=== PATIENT | male | born 1990 | race Caucasian/White ===

== ENCOUNTER 2017-03-12 15:56 | Inpatient (IN) | payer OTHER ==
[~2017-03-12] VITALS: Ht 185.4 cm; Wt 79.4 kg
[2017-03-12 20:55] LABS: *AMPHETAMINE, URINE NEGATIVE (NEGATIVE); *BARBITURATE, URINE NEGATIVE (NEGATIVE); *CANNABINOID, URINE POSITIVE (NEGATIVE); *COCCAINE, URINE NEGATIVE (NEGATIVE); *OPIATE, URINE NEGATIVE (NEGATIVE); *PHENCYCLIDINE SCREEN,URINE NEGATIVE (NEGATIVE)
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
[2017-03-12] MEDS ORDERED: ONDANSETRON ODT 4 MG TAB.RAPDIS SL PRN (21:15)
[2017-03-12] MEDS ORDERED: LORAZEPAM 1 MG TABLET PO PRN ×2 (21:15)
[2017-03-12] MEDS ORDERED: LOPERAMIDE HCL 2 MG CAPSULE PO PRN ×2 (21:15)
[2017-03-12] MEDS ORDERED: HYDROXYZINE PAMOATE 25 MG CAPSULE PO PRN (21:15)
[2017-03-12] MEDS ORDERED: MAG HYDROX/AL HYDROX/SIMETH 30 ML LIQUID UDC PO PRN (21:15)
[2017-03-12] MEDS ORDERED: DICYCLOMINE HCL 20 MG TABLET PO PRN (21:15)
[2017-03-12] MEDS ORDERED: ONDANSETRON 4 MG/2 ML VIAL IM PRN (21:15)
[2017-03-12] MEDS ORDERED: CLONIDINE HCL 0.1 MG TABLET PO PRN (21:15)
[2017-03-12] MEDS ORDERED: THIAMINE HCL 200 MG/2 ML VIAL IM ONE (21:15)
[2017-03-12] MEDS ORDERED: LORAZEPAM 2 MG/1 ML VIAL IM PRN (21:15)
[2017-03-12] MEDS ORDERED: MAGNESIUM HYDROXIDE 30 ML LIQUID UDC PO PRN (21:15)
[2017-03-12] MEDS ORDERED: MIRALAX 17 GM POWD.PACK PO PRN (21:15)
[2017-03-12] MEDS ORDERED: diphenhydrAMINE 50 MG CAPSULE PO PRN (21:15)
[2017-03-12] MEDS ORDERED: ACETAMINOPHEN 325 MG TABLET PO PRN (21:15)
[2017-03-12] MEDS ORDERED: IBUPROFEN 400 MG TABLET PO PRN (21:15)
[2017-03-12] MEDS ORDERED: QUET100T PO (21:38)
[2017-03-12] MEDS ORDERED: FLUO-120 PO (21:38)
[2017-03-12] MEDS ORDERED: GABA600T2 PO (21:38)
[2017-03-12] MEDS ORDERED: HALO2TAB PO (21:38)
[2017-03-12] MEDS ORDERED: HYDR50CA5 PO (21:38)
[2017-03-12 21:48] LABS: BASOPHILS # (AUTO) 0.2 K/uL (0.0-8.0); BASOPHILS % (AUTO) 2.1 % (0.0-2.0); EOSINOPHILS # (AUTO) 0.3 K/uL (0.0-0.7); EOSINOPHILS % (AUTO) 2.9 % (0.0-7.0); HEMATOCRIT 46.5 % (36.7-47.1); HEMOGLOBIN 16.1 g/dL (12.5-16.3); LYMPHOCYTES # (AUTO) 3.6 K/uL (20.0-40.0); LYMPHOCYTES % (AUTO) 34.5 % (20.5-51.5); MEAN CORPUSCULAR HEMOGLOBIN 31.6 uug (23.8-33.4); MEAN CORPUSCULAR HGB CONC 35 g/dL (32.5-36.3); MEAN CORPUSCULAR VOLUME 91.4 fL (73.0-96.2); MONOCYTES # (AUTO) 0.5 K/uL (2.0-10.0); MONOCYTES % (AUTO) 4.7 % (0.0-11.0); NEUTROPHILS # (AUTO) 5.9 K/uL (1.8-8.9); NEUTROPHILS % (AUTO) 55.8 % (38.5-71.5); PLATELET COUNT (AUTO) 409 K/uL (152-348); RED BLOOD CELL COUNT(AUTO) 5.09 MIL/uL (4.06-5.63); RED CELL DISTRIBUTION WIDTH 12.1 % (12.1-16.2); WHITE BLOOD COUNT (AUTO) 10.5 K/uL (3.6-10.2)
[2017-03-12 22:14] LABS: ALBUMIN 4.2 g/dL (3.4-5.0); BILIRUBIN,TOTAL 0.3 mg/dL (0.2-1.0); CALCIUM 8.7 mg/dL (8.5-10.1); MAGNESIUM 2.2 mg/dL (1.8-2.4); POTASSIUM 3.7 mmol/L (3.5-5.1); TOTAL PROTEIN, SERUM 7.5 g/dL (6.4-8.2)
[2017-03-12 22:29] LABS: HIV-1/2 ANTIBODY NON REACTIVE (NONREACTIVE)
[2017-03-12 22:30] LABS: HIV-1 p24 ANTIGEN NON REACTIVE (NONREACTIVE)
[2017-03-12 22:35] LABS: THYROID STIMULATING HORMONE 1.51 mIU/mL (0.358-3.740)
--- NOTE | 2017-03-12 22:52 | NUR ---
PRN ATIVAN Pt reports anxiety/agitation and restlessness. Pt is observed with fine tremors. CIWA:6. PRN Ativan 1 mg administered as ordered. Breathing even and unlabored, safety measures in place. Will monitor effectiveness.
[2017-03-12] MEDS ORDERED: LORAZEPAM 1 MG TABLET ONE (22:58)
--- NOTE | 2017-03-12 23:52 | NUR ---
PRN ATIVAN REASSESSMENT PRN Ativan effective. Pt reports feeling less anxious and restless. Pt noted to be lying in bed calmly. CIWA:3. Breathing even and unlabored, safety measures in place. Will continue to monitor.
[2017-03-13] VITALS: BP 119/50
[2017-03-13] MEDS ORDERED: diphenhydrAMINE 50 MG CAPSULE ONE (00:57)
--- NOTE | 2017-03-13 00:57 | NUR ---
PRN BENADRYL Pt complains of inability to sleep. PRN Benadryl administered as ordered. Breathing is even and unlabored, respirations 16, safety measures in place. Will continue to monitor effectiveness.
--- NOTE | 2017-03-13 01:57 | NUR ---
PRN BENADRYL REASSESSMENT PRN Benadryl effective. Pt lying in bed with eyes closed noted to be asleep. No facial grimacing. Respirations 16, breathing is even and unlabored, safety measures in place. Will continue to monitor.
[2017-03-13 04:00] VITALS: BP 95/45
--- NOTE | 2017-03-13 04:00 | NUR ---
CIWA DEFERRED CIWA deferred d/t order is Q4H while awake. Pt lying in bed with eyes closed noted to be asleep. Respirations 16, breathing is even and unlabored. Pt safe with bed locked in lowest position, side rails up x2 and call light within reach. Will continue to monitor.
--- NOTE | 2017-03-13 07:16 | NUR ---
END OF SHIFT Pt is a 26 year old male patient admitted on 03/12/17 for ETOH dependency. Pt is full code with NKA. He reports a PMHx of anxiety, depression, Bipolar and ADHD. At 2252 he received PRN Ativan for CIWA: 6. PRN Ativan was effective as evidenced by decrease in CIWA to 3. At 0057 pt received PRN Benadryl d/t inability to fall asleep. PRN medication was effective. He slept a total of 5 hrs, Intake: 1252 mL, Void: x1, BM: 0. CIWA:3. Pt is alert and oriented x4, breathing is even and unlabored. Pt safe with bed locked in lowest position, side rails up x2 and call light within reach. Endorsed to oncoming nurse.
--- NOTE | 2017-03-13 07:19 | NUR ---
Start OF Shift Report received from night auditor nurse. Pt is a 26 year old male patient admitted on 03/12/17 for ETOH dependency. Pt is full code regular diet on fall and seizure precautions, with no food or drug allergies. Pt placed on a 5 day Ativan taper to begin today. Pt reports PMHx of anxiety, depression, Bipolar and ADHD. Pt received PRN Ativan , Benadryl d/t inability to fall asleep. PRN medication was effective. Pts last CIWA:3 taken at 0100. Pt is alert and oriented x4, breathing is even and unlabored. He slept a total of 5 hrs last night, Pt safe with bed locked in lowest position, side rails up x2 and call light within reach, all safety measures in place will continue to monitor and provide support.
[2017-03-13 08:00] VITALS: BP 119/67
[2017-03-13] MEDS ORDERED: TUBERCULIN,PURIF.PROT.DERIV. 5 TU/0.1 ML TEST ID ONE (09:00)
[2017-03-13] MEDS: LORAZEPAM 1 MG TABLET PO SCH ×4 (09:05→20:14)
[2017-03-13] MEDS: FOLIC ACID 1 MG TABLET PO SCH (09:05)
[2017-03-13] MEDS: THIAMINE HCL 100 MG TABLET PO SCH (09:05)
[2017-03-13] MEDS: MULTIVITAMINS,THERAPEUTIC TABLET PO SCH (09:05)
[2017-03-13] MEDS: GABAPENTIN 300 MG CAPSULE PO SCH ×2 (09:05→20:14)
[2017-03-13 12:00] VITALS: BP 121/71
[2017-03-13] MEDS: FLUOXETINE HCL 20 MG CAPSULE PO SCH (12:27)
[2017-03-13 16:00] VITALS: BP 117/73
--- NOTE | 2017-03-13 19:13 | NUR ---
End Of Shift Report given to shift supervisor rn nurse. Pt is a 26 year old male patient admitted on 03/12/17 for ETOH dependency. Pt is full code regular diet on fall and seizure precautions, with no food or drug allergies. Pt continues his 5 day Ativan taper tolerating well. PMHx of anxiety, depression, Bipolar and ADHD. Pt did not receive any PRN medications, Pt presented with sweats, agitation, chills, and tremors, his scheduled medications have been given. Pts last CIWA: 4 taken at 1600. Pt is alert and oriented x4, breathing is even and unlabored. Pt slept most of the day and attended some activities, he reported that the medication is working well at controlling his withdrawal symptoms. He had a total fluid intake of 4482ml with 2 voids and 1 bowel movement. Pt safe with bed locked in lowest position, side rails up x2 and call light within reach, all safety measures in place will continue to monitor and provide support.
[2017-03-13 20:00] VITALS: BP 126/71
--- NOTE | 2017-03-13 20:00 | NUR ---
Start of Shift Pt is a 26-year old, male, patient admitted for ETOH dependency. Pt is Full Code, on Regular Diet and on fall and seizure precautions. Pt reports no food or drug allergies. Pt placed on a 5-day Ativan taper, started 03/13/2017. Pt reports PMHx of anxiety, depression, Bipolar and ADHD. Pt is AAOx4, with mild anxiety noted. With flushed skin observed. Pt is ambulatory with steady gait, with no open skin noted. No SOB noted, not in respi distress. Fall, universal, seizure and safety prec in place. Call light within reach. Kept pt warm, dry and comfortable. All needs met. Last CIWA=5. Will continue to monitor pt.
[2017-03-13] MEDS: QUETIAPINE FUMARATE 100 MG TABLET PO SCH (20:14)
--- NOTE | 2017-03-13 20:18 | NUR ---
RN note PRN Clonidine Pt c/o increasing withdrawal symptoms, with tremors noted. Pulse=92. Administered Clonidine 0.1 mg PO. No SOB noted. Will monitor and reassess.
--- NOTE | 2017-03-13 21:20 | NUR ---
RN note reassess Pt on bed, watching TV, no SOB nor facial grimacing noted. Per pt, anxiety level decreased and "feels better". No gross tremors observed. Pulse=82. Clonidine noted effective.
[2017-03-14] VITALS: BP 120/72
[2017-03-14 04:00] VITALS: BP 114/70
--- NOTE | 2017-03-14 07:13 | NUR ---
End of Shift Pt is a 26-year old, male, patient admitted for ETOH dependency. Pt is Full Code, on Regular Diet and on fall and seizure precautions. Pt reports no food or drug allergies. Pt placed on a 5-day Ativan taper, started 03/13/2017. Pt reports PMHx of anxiety, depression, Bipolar and ADHD. Pt is AAOx4, with mild anxiety noted. With flushed skin observed. Pt is ambulatory with steady gait, with no open skin noted. No SOB noted, not in respi distress. Fall, universal, seizure and safety prec in place. Call light within reach. Kept pt warm, dry and comfortable. All needs met. Latest CIWA=3, slept for 5 hours. Endorsed to AM shift nurse for continuity of care.
--- NOTE | 2017-03-14 07:27 | NUR ---
Start Of Shift Report received from shift commander nurse. Pt is a 26 year old male patient admitted on 03/12/17 for ETOH dependency. Pt is full code regular diet on fall and seizure precautions, with no food or drug allergies. Pt placed on a 5 day Ativan taper tolerating well. Pt reports PMHx of anxiety, depression, Bipolar and ADHD. Pt received PRN Clonidine 0.1mg. PRN medication was effective per shift commander nurse. Pt's last CIWA: 3 taken at 0400. Pt is alert and oriented x4, breathing is even and unlabored. He slept a total of 5 hrs last night, Pt safe with bed locked in lowest position, side rails up x2 and call light within reach, all safety measures in place will continue to monitor and provide support.
[2017-03-14 08:00] VITALS: BP 119/82
[2017-03-14] MEDS: LORAZEPAM 1 MG TABLET PO SCH ×3 (08:26→20:48)
[2017-03-14] MEDS: FOLIC ACID 1 MG TABLET PO SCH (08:26)
[2017-03-14] MEDS: GABAPENTIN 300 MG CAPSULE PO SCH ×3 (08:26→20:49)
[2017-03-14] MEDS: THIAMINE HCL 100 MG TABLET PO SCH (08:26)
[2017-03-14] MEDS: MULTIVITAMINS,THERAPEUTIC TABLET PO SCH (08:26)
[2017-03-14] MEDS: FLUOXETINE HCL 20 MG CAPSULE PO SCH (08:27)
[2017-03-14 08:59] LABS: BASOPHILS # (AUTO) 0.1 K/uL (0.0-8.0); BASOPHILS % (AUTO) 0.7 % (0.0-2.0); EOSINOPHILS # (AUTO) 0.3 K/uL (0.0-0.7); EOSINOPHILS % (AUTO) 3.9 % (0.0-7.0); HEMATOCRIT 42.5 % (36.7-47.1); HEMOGLOBIN 14.8 g/dL (12.5-16.3); LYMPHOCYTES # (AUTO) 3.1 K/uL (20.0-40.0); LYMPHOCYTES % (AUTO) 37.6 % (20.5-51.5); MEAN CORPUSCULAR HEMOGLOBIN 31.9 uug (23.8-33.4); MEAN CORPUSCULAR HGB CONC 35 g/dL (32.5-36.3); MEAN CORPUSCULAR VOLUME 91.7 fL (73.0-96.2); MONOCYTES # (AUTO) 0.7 K/uL (2.0-10.0); NEUTROPHILS % (AUTO) 48.8 % (38.5-71.5); PLATELET COUNT (AUTO) 364 K/uL (152-348); RED BLOOD CELL COUNT(AUTO) 4.64 MIL/uL (4.06-5.63); RED CELL DISTRIBUTION WIDTH 11.6 % (12.1-16.2); WHITE BLOOD COUNT (AUTO) 8.2 K/uL (3.6-10.2)
[2017-03-14 09:07] LABS: HCV AB <0.1 s/co ratio (0.0-0.9); HEPATITIS B CORE AB, IgM Negative (Negative); HEPATITIS B SURFACE AG Negative (Negative)
[2017-03-14 09:39] LABS: FOLIC ACID 7.1 NG/ML (8.6-58.9)
[2017-03-14 09:41] LABS: ALBUMIN 3.5 g/dL (3.4-5.0); BILIRUBIN,DIRECT 0.1 mg/dL (0.0-0.2); BILIRUBIN,TOTAL 0.2 mg/dL (0.2-1.0); CALCIUM 8.8 mg/dL (8.5-10.1); CREATININE 1.1 mg/dL (0.6-1.3); POTASSIUM 4.5 mmol/L (3.5-5.1); TOTAL PROTEIN, SERUM 6.7 g/dL (6.4-8.2)
[2017-03-14 12:00] VITALS: BP 124/88
[2017-03-14] MEDS ORDERED: LORAZEPAM 1 MG TABLET PO ONE (13:00)
[2017-03-14] MEDS: CLONIDINE HCL 0.1 MG TABLET PO SCH ×2 (14:24→20:49)
[2017-03-14 16:00] VITALS: BP 118/68
--- NOTE | 2017-03-14 19:09 | NUR ---
End of Shift Report given to shift supervisor melting. Pt is a 26 year old male patient admitted on 03/12/17 for ETOH dependency. Pt is full code regular diet on fall and seizure precautions, with no food or drug allergies. Pt placed on a 5 day Ativan taper tolerating well. Pt reports PMHx of anxiety, depression, Bipolar and ADHD. Pt did not receive any PRN medications during the day. Pt's last CIWA: 5 taken at 1600. Pt participated in some activities and groups. Pt stated that the medications are working well at controlling the withdrawal symptoms, evidenced by low assessment scores during the day ranging from 7-5. Pt ate all of his meals. Pt remains compliant with the treatment plan. Pts vital signs within normal limits, A/Ox4, denies chest pain. Respirations even unlabored, lungs clear upon auscultation abdomen soft and non- distended. Pt denies nausea, vomiting and diarrhea. Pt total fluid intake was 4105ml with 3 voids and no stool. Safety measures in place, call light within reach. All pertinent information discussed with shift supervisor melting, endorsement given to shift supervisor melting nurse.
[2017-03-14 20:00] VITALS: BP 123/71
--- NOTE | 2017-03-14 20:00 | NUR ---
1999 Patient received awake, alert and just returning to his room # 302[facility]. Gait is steady. Patient responds to nurse's greeting and introduction with direct eye contact and, " Hi, you're my nurse tonight?" Patient is oriented to person, place, day, date, time and his personal situation. Patient's color is pink and his skin is clean, warm, dry and intact. Lung sounds are clear bilaterally and active bowel sounds are noted X 4 abdominal Quads, per auscultation. Patient states that he is doing 'okay' generally, though he states that he got emotional and had a cry briefly after group today. Patient states further that he did receive support from staff and other patients when his crying episode occurred. Vital signs are : 98.4-85-18 123/71, O2 Sat 98%, CIWA 4. Patient states that he has been eating and taking fluids ad bert with no real gastric issues so far. Patient was admitted on 03/12/17 for Alcohol withdrawal and he is currently on a 5-Day Ativan medication taper, which he has been apparently tolerating well. Patient denies any pain or other discomforts and he offers no requests at this time. Patient is friendly, cooperative and verbally appropriate at this time. Bed is locked and in lowest position, bed rails are up X 2 and call light within patient's easy reach.
[2017-03-14] MEDS: QUETIAPINE FUMARATE 100 MG TABLET PO SCH (20:49)
[2017-03-15] VITALS: BP 118/67
--- NOTE | 2017-03-15 04:00 | NUR ---
Patient refused V/S to be done at this time, as patient wants to continue to sleep.
--- NOTE | 2017-03-15 06:00 | NUR ---
0600 Patient had an uneventful night, sleeping a total of 6 hours. Total intake was 1,500 ml p.o. and he was up to the bathroom for 2 voids and 1 stools. No Prn medications given this shift. V/SS afebrile, CIWA 4. Patient is presently sleeping soundly with eyes closed and respirations even, unlabored at 12. Patient is in stable condition at this time.
--- NOTE | 2017-03-15 07:35 | NUR ---
START OF SHIFT Received patient from spray ii painter nurse. 26 year old male, admitted on 03/12/17 for ETOH Dependence. Pt is full code regular diet on fall and seizure precautions. NKDA/NKFA. Patient is currently on a 5 day Ativan taper tolerating well. Reports medical hx of Depression, Anxiety, Bipolar, and ADHD. Pt remains compliant and cooperative with ordered treatment plan and s/s of withdrawal are being well managed with ordered medications. Most recent CIWA at 0400 is 4. Pt slept for 6 hours. No PRN medications needed or administered throughout night. V/S remain WNL. Skin is intact. Pt reports having 1x BM. Pt is currently sleeping in bed. All safety measures in place per hospital policy. Bed in lowest position, side rails up x2, call-light within reach. Will continue to monitor.
[2017-03-15 08:10] VITALS: BP 116/60
[2017-03-15] MEDS: FLUOXETINE HCL 20 MG CAPSULE PO SCH (08:20)
[2017-03-15] MEDS: GABAPENTIN 300 MG CAPSULE PO SCH ×2 (08:20→15:12)
[2017-03-15] MEDS: FOLIC ACID 1 MG TABLET PO SCH (08:20)
[2017-03-15] MEDS: MULTIVITAMINS,THERAPEUTIC TABLET PO SCH (08:20)
[2017-03-15] MEDS: LORAZEPAM 1 MG TABLET PO SCH ×4 (08:20→20:47)
[2017-03-15] MEDS: CLONIDINE HCL 0.1 MG TABLET PO SCH ×3 (08:20→20:48)
[2017-03-15] MEDS: THIAMINE HCL 100 MG TABLET PO SCH (08:20)
[2017-03-15 13:01] VITALS: BP 120/69
--- NOTE | 2017-03-15 13:09 | NUR ---
MEDICATION ADMINISTRATION Upon receiving ordered scheduled dose of Ativan 1 mg mouth check done per protocol, pt lifted tongue to show medication was swallowed. Pt was noted to have medication between bottom lip and teeth, pt was instructed to take the medication as ordered, another mouth check was done and clear. MD notified and is aware. Will continue to closely monitor.
[2017-03-15 17:17] VITALS: BP 124/69
--- NOTE | 2017-03-15 18:46 | NUR ---
END OF SHIFT 26 year old male patient admitted on 03/12/17 for ETOH Dependence. Pt is full code regular diet on fall and seizure precautions. Patient is currently on a 5 day Ativan taper tolerating well. Reports medical hx of Depression, Anxiety, Bipolar, and ADHD. Pt remains compliant and cooperative with ordered treatment plan and s/s of withdrawal are being well managed with ordered medications. Most recent CIWA is 4 at 1700. Pt monitored carefully during med pass to assure medication is being taken approptiately per hospital policy. No PRN medications needed or administered throughout day. V/S remain WNL. Pt socializes with peers, adequate caloric intake. Pt reports having 1x BM. All safety measures in place per hospital policy. Bed in lowest position, side rails up x2, call-light within reach. maintenance supervisor 2nd shift to continue to monitor.
[2017-03-15 20:00] VITALS: BP 129/66
--- NOTE | 2017-03-15 20:00 | NUR ---
1999 Patient received awake, alert and sitting up on his bed braiding a bracelet. Upon seeing nurse, patient states, " Look at this bracelet! isn't it nice?! Patient's color is pink and his skin is warm, dry and intact. Patient is oriented to person, place, day, date, time and his personal situation. Patient states that he he is presently feeling okay and he offers no requests or c/o any thing at this time. Patient states further that he has been eating, taking fluids ad bert and attending [facility] groups consistently. Vital signs are: 98.6-86-20 129/66 O2 sat 98%, CIWA 4. Patient denies any pain presently. Patient was admitted on 03/12/17 for Alcohol withdrawal and he is currently on a 5-Day Ativan medication taper, which he has apparently been tolerating well so far. Patient is cooperative and verbally appropriate in interactions with nurse, however his affect is a noticeably flat and his eye contact is poor. Bed is locked and in lowest position, bed rails are up X 2 and call light within patient's easy reach.
[2017-03-15] MEDS: QUETIAPINE FUMARATE 100 MG TABLET PO SCH (20:48)
[2017-03-15] MEDS ORDERED: GABAPENTIN 400 MG CAPSULE ONE (20:49)
[2017-03-15] MEDS ORDERED: GABAPENTIN 400 MG CAPSULE PO SCH (21:00)
[2017-03-16] VITALS: BP 121/61
--- NOTE | 2017-03-16 04:00 | NUR ---
Patient refuses to be awakened for V/S to be done at this time>
--- NOTE | 2017-03-16 06:00 | NUR ---
0600 Patient slept a total of 5.5 hours and he was up to the bathroom for 1 void and 1 stool. Total intake was 875 ml p.o. No Prn medications were given this shift. V/SS afebrile, CIWA 4. Patient is presently sleeping soundly in stable condition. Eyes closed and respirations even, unlabored at 12.
--- NOTE | 2017-03-16 07:05 | NUR ---
Start of Shift Endorsement received from nightshift nurse. Pt is a 26 y/o male admitted for alcohol dependence. Pt has been placed on a 5 day Ativan taper. Pt is tolerating the taper well, mildly withdrawing at this time AEB CIWA 4. Pt did not receive any PRN medications. Pt slept 5.5 hours, reports feeling tired. VS WNL, Full Code. PT is alert and oriented x4. Pt is in STABLE condition at this time. Remains compliant with medication and diet regimen. All needs have been met, All safety measures in place per hospital policy. Bed in lowest position, side rails up x2, call-light within reach. Will continue to monitor
[2017-03-16 07:47] LABS: CALCIUM 8.6 mg/dL (8.5-10.1); CREATININE 0.9 mg/dL (0.6-1.3); PHOSPHOROUS 4.9 mg/dL (2.5-4.9); POTASSIUM 3.9 mmol/L (3.5-5.1)
[2017-03-16 08:03] VITALS: BP 125/59
[2017-03-16 08:11] LABS: BASOPHILS # (AUTO) 0.1 K/uL (0.0-8.0); BASOPHILS % (AUTO) 0.7 % (0.0-2.0); EOSINOPHILS # (AUTO) 0.4 K/uL (0.0-0.7); EOSINOPHILS % (AUTO) 3.9 % (0.0-7.0); HEMATOCRIT 40.8 % (36.7-47.1); HEMOGLOBIN 14.2 g/dL (12.5-16.3); LYMPHOCYTES # (AUTO) 3.8 K/uL (20.0-40.0); LYMPHOCYTES % (AUTO) 36.2 % (20.5-51.5); MEAN CORPUSCULAR HGB CONC 35 g/dL (32.5-36.3); MEAN CORPUSCULAR VOLUME 92.1 fL (73.0-96.2); MONOCYTES % (AUTO) 9.2 % (0.0-11.0); NEUTROPHILS # (AUTO) 5.2 K/uL (1.8-8.9); PLATELET COUNT (AUTO) 348 K/uL (152-348); RED BLOOD CELL COUNT(AUTO) 4.43 MIL/uL (4.06-5.63); RED CELL DISTRIBUTION WIDTH 12.1 % (12.1-16.2)
[2017-03-16 08:22] LABS: WHITE BLOOD COUNT (AUTO) 10.5 K/uL (3.6-10.2)
[2017-03-16] MEDS: FLUOXETINE HCL 20 MG CAPSULE PO SCH (08:35)
[2017-03-16] MEDS: LORAZEPAM 1 MG TABLET PO SCH ×3 (08:36→21:16)
[2017-03-16] MEDS: THIAMINE HCL 100 MG TABLET PO SCH (08:36)
[2017-03-16] MEDS: FOLIC ACID 1 MG TABLET PO SCH (08:36)
[2017-03-16] MEDS: CLONIDINE HCL 0.1 MG TABLET PO SCH ×3 (08:36→21:16)
[2017-03-16] MEDS: MULTIVITAMINS,THERAPEUTIC TABLET PO SCH (08:36)
[2017-03-16] MEDS ORDERED: GABAPENTIN 300 MG CAPSULE PO SCH (09:00)
[2017-03-16 12:00] VITALS: BP 124/61
[2017-03-16] MEDS ORDERED: CALCIUM CARBONATE 500 MG TAB.CHEW PO PRN (13:30)
[2017-03-16] MEDS ORDERED: BACLOFEN 20 MG TABLET PO SCH (13:30)
[2017-03-16] MEDS: GABAPENTIN 400 MG CAPSULE PO SCH ×2 (15:31→21:15)
[2017-03-16] MEDS: DICYCLOMINE HCL 20 MG TABLET PO SCH ×2 (15:32→21:16)
[2017-03-16 16:00] VITALS: BP 125/68
--- NOTE | 2017-03-16 18:54 | NUR ---
End of Shift Endorsement given to nightshift nurse. Pt is a 26 y/o male admitted for alcohol dependence. Pt has been placed on a 5 day Ativan taper. Pt is tolerating the taper well, mildly withdrawing at this time AEB CIWA 2 at 1600. Pt did not receive any PRN medications. Pt participated in groups and activities. PT reported feeling anger, after farther evaluation by Dr. Knott, the pt has been prescribed PRN Seroquel 25mg. Educated pt on deep breathing and guided imagery to help relieve minor to moderate anxiety. Intake: 2910ml, Void x3, BM x1. VS WNL, Full Code. PT is alert and oriented x4. Pt is in STABLE condition at this time. Remains compliant with medication and diet regimen. All needs have been met, All safety measures in place per hospital policy. Bed in lowest position, side rails up x2, call-light within reach. Will continue to monitor
[2017-03-16 20:00] VITALS: BP 131/72
--- NOTE | 2017-03-16 20:00 | NUR ---
Start of Shift Pt is a 26 year old male admitted for ETOH dependence, placed on 5 day Ativan taper. PMH: anxiety, depression bipolar, ADHD. NKA, regular diet, fall/seizure precautions - no history of seizures and full code. Upon assessment, pt presents with anxiety, reports mild aches throughout body, respirations even and unlabored, denies SOB/chest pain, skin flushed, intact, bowel sounds active x4, abdomen soft. Safety measures in place, call light within reach, side rails up x2, bed locked and in low position. Will continue to monitor.
[2017-03-16] MEDS: QUETIAPINE FUMARATE 100 MG TABLET PO SCH (21:16)
[2017-03-17] VITALS: BP 117/62
--- NOTE | 2017-03-17 | NUR ---
Vital Signs BP 117/62, pulse 80, respirations 16, SpO2 98%, temp 98.6, no reports of pain 0/10 CIWA deferred d/t pt sleeping - to assess while pt is awake as ordered. Safety measures in place. Will continue to monitor.
[2017-03-17 04:00] VITALS: BP 99/68
--- NOTE | 2017-03-17 04:00 | NUR ---
Vital Signs BP 99/68, pulse 67, respirations 14, SpO2 98%, temp 98.1, no reports of pain 0/10 CIWA deferred d/t pt sleeping - to assess while pt is awake as ordered. Safety measures in place. Will continue to monitor.
--- NOTE | 2017-03-17 07:00 | NUR ---
End of Shift Pt is a 26 year old male admitted for ETOH dependence, placed on 5 day Ativan taper. PMH: anxiety, depression bipolar, ADHD. NKA, regular diet, fall/seizure precautions - no history of seizures and full code. During shift, pt presented with anxiety and mild body aches - scheduled taper medications administered, effective in management of s/s of withdrawal as reporty by pt, BERRY 2. No PRN medications administered. Pt slept for 5 hours intake of 2535 ml PO and voids x3. Safety measures in place, call light within reach, side rails up x2, bed locked and in low position. Endorsed to day shift nurse.
--- NOTE | 2017-03-17 07:35 | NUR ---
START OF SHIFT Received pt aox3 this am. Pt on 5 day Ativan taper. Patient slept 5 hours last night and reports he slept "off and on" and feels "congested and achey" this morning. No PRNs needed during shift per night nurse. Patient continues on seizure and fall precautions. Denies hx of seizures. Last CIWA 2 per night nurse. Will administer 0900 medications this am. Will provide safe and supportive environment and continue to monitor. Call tavarez within reach. Bed locked and in lowest position.
[2017-03-17 08:00] VITALS: BP 107/61
[2017-03-17] MEDS: GABAPENTIN 400 MG CAPSULE PO SCH ×3 (08:38→20:54)
[2017-03-17] MEDS: DICYCLOMINE HCL 20 MG TABLET PO SCH ×3 (08:39→20:54)
[2017-03-17] MEDS: FOLIC ACID 1 MG TABLET PO SCH (08:39)
[2017-03-17] MEDS: FLUOXETINE HCL 20 MG CAPSULE PO SCH (08:39)
[2017-03-17] MEDS: LORAZEPAM 1 MG TABLET PO SCH ×2 (08:39→20:54)
[2017-03-17] MEDS: FAMOTIDINE 20 MG TABLET PO SCH (08:39)
[2017-03-17] MEDS: MULTIVITAMINS,THERAPEUTIC TABLET PO SCH (08:39)
[2017-03-17] MEDS: CLONIDINE HCL 0.1 MG TABLET PO SCH ×3 (08:39→20:54)
[2017-03-17] MEDS: THIAMINE HCL 100 MG TABLET PO SCH (08:39)
--- NOTE | 2017-03-17 10:38 | NUR ---
MD communication Pt denies having active diarrhea, notified Dr Layne, ordered to cancel stool for c-diff. Orders entered. unable to enter orders.
[2017-03-17] MEDS: QUETIAPINE FUMARATE 25 MG TABLET PO PRN (11:03)
--- NOTE | 2017-03-17 11:06 | NUR ---
PRN MEDS PRN Seroquel given per patient request for agitation and anger. He states he talked to Dr. Wong and he suggested taking his PRN Seroquel. Will reassess.
--- NOTE | 2017-03-17 11:50 | NUR ---
PRN REASSESSMENT Patient currently sleeping in bed. RR even and unlabored. Bed locked and in lowest position. Call tavarez within reach. medication effective. Will continue to monitor
[2017-03-17 12:00] VITALS: BP 108/51
[2017-03-17 16:00] VITALS: BP 108/56
--- NOTE | 2017-03-17 18:41 | NUR ---
END OF SHIFT Pt continues on 5 day Ativan taper and tolerating well. Pt c/o anxiety, agitation, and feeling manic during shift. PRN Seroquel given with effectiveness. Last CIWA 7. Patient attended groups and activities this shift. patient compliant with medications and treatment plan. VSS. Pt on seizure and fall precautions. All needs met. All safety measures in place. Will pass report to oncoming nurse.
[2017-03-17] MEDS ORDERED: BACLOFEN 20 MG TABLET PO PRN ×2 (19:45)
[2017-03-17 20:00] VITALS: BP 114/63
--- NOTE | 2017-03-17 20:00 | NUR ---
Start of Shift Pt is a 26 year old male admitted for ETOH dependence, placed on 5 day Ativan taper. PMH: anxiety, depression bipolar, ADHD. NKA, regular diet, fall/seizure precautions - no history of seizures and full code. Upon assessment, pt reports joint aches in knees, and reports feeling anxious throughout the day, respirations even and unlabored, denies SOB/chest pain, skin flushed, intact, bowel sounds active x4, abdomen soft. Safety measures in place, call light within reach, side rails up x2, bed locked and in low position. Will continue to monitor.
[2017-03-17] MEDS: QUETIAPINE FUMARATE 100 MG TABLET PO SCH (20:53)
[2017-03-18] VITALS: BP 110/59
--- NOTE | 2017-03-18 | NUR ---
Vital Signs BP 110/59, pulse 70, respirations 16, SpO2 96%, temp 98.1, no reports of pain 0/10 CIWA deferred d/t pt sleeping - to assess while pt is awake as ordered. Safety measures in place. Will continue to monitor.
--- NOTE | 2017-03-18 04:00 | NUR ---
Pt refused to be woken up for 0400 Vital Signs Encouraged x3, however pt continued to refuse CIWA deferred d/t pt sleeping - to assess while pt is awake as ordered. Safety measures in place. Will continue to monitor.
--- NOTE | 2017-03-18 07:00 | NUR ---
End of Shift Pt is a 26 year old male admitted for ETOH dependence, placed on 5 day Ativan taper. PMH: anxiety, depression bipolar, ADHD. NKA, regular diet, fall/seizure precautions - no history of seizures and full code. During shift, pt presented with joint aches in knees, reported feeling anxious - scheduled taper medications administered, effective in management of s/s of withdrawal, CIWA 6. No PRN medications administered during shift. Pt slept for 5 hours, intake of 1683ml PO and voids x1. Safety measures in place, call light within reach, side rails up x2, bed locked and in low poisiton. Endorsed to day shift nurse.
[2017-03-18 08:00] VITALS: BP_SYST 111; BP_SYST 116; BP_DIAS 68; BP_DIAS 78
--- NOTE | 2017-03-18 08:00 | NUR ---
START OF SHIFT Pt 26 y/o male admitted for etoh. Pt received in room with eyes closed resting, but easily arousable to name. Pt alert and oriented to name, place, and time. Perrla. Skin warm and slightly moist to touch. Respirations even and unlabored. It was reported that pt slept for 5 hours last night. Bed on lowest position with side rails x2 up for safety. Call light within reach. Call light within reach. No distress noted at this time.
[2017-03-18] MEDS: THIAMINE HCL 100 MG TABLET PO SCH (08:43)
[2017-03-18] MEDS: CLONIDINE HCL 0.1 MG TABLET PO SCH ×2 (08:43→21:15)
[2017-03-18] MEDS: DICYCLOMINE HCL 20 MG TABLET PO SCH ×2 (08:43→15:01)
[2017-03-18] MEDS: FOLIC ACID 1 MG TABLET PO SCH (08:43)
[2017-03-18] MEDS: FAMOTIDINE 20 MG TABLET PO SCH (08:43)
[2017-03-18] MEDS: FLUOXETINE HCL 20 MG CAPSULE PO SCH (08:43)
[2017-03-18] MEDS: MULTIVITAMINS,THERAPEUTIC TABLET PO SCH (08:43)
[2017-03-18] MEDS: GABAPENTIN 400 MG CAPSULE PO SCH ×3 (08:43→21:15)
--- NOTE | 2017-03-18 10:18 | NUR ---
ENDORSE Endorse pt to nurse.
--- NOTE | 2017-03-18 10:18 | NUR ---
RESUMED CARE Will resume care of patient. All pertinent information was endorsed. Pt is stable at this time, will continue to monitor.
[2017-03-18 13:24] VITALS: BP 123/71
[2017-03-18 15:49] LABS: *AMPHETAMINE, URINE NEGATIVE (NEGATIVE); *BARBITURATE, URINE NEGATIVE (NEGATIVE); *CANNABINOID, URINE NEGATIVE (NEGATIVE); *COCCAINE, URINE NEGATIVE (NEGATIVE); *OPIATE, URINE NEGATIVE (NEGATIVE); *PHENCYCLIDINE SCREEN,URINE NEGATIVE (NEGATIVE)
[2017-03-18 17:49] VITALS: BP 127/72
--- NOTE | 2017-03-18 19:05 | NUR ---
END OF SHIFT Endorsed to operation shift supervisor nurse. 26 year old make patient admitted on 03/12/17 for ETOH dependence. Pt has completed 5 day Ativan taper and is medically cleared for discharge tomorrow. NKA. Pt reports medical history of anxiety, depression, bipolar, ADHD. Pt remain safe and seizure free throughout hospitalization. Most recent CIWA at 1700 is 3. V/S remain WNL throughout shift. No PRN medications were needed or administered throughout night. UDS provided. Reports BM x1. All needs met at this time. Pt is not in any acute distress, pt socials with peers and attends group activities. Safety precautions are in place, will continue to monitor.
[2017-03-18 20:00] VITALS: BP 140/72
--- NOTE | 2017-03-18 20:00 | NUR ---
Start of Shift Note: Report received from day shift nurse. Pt is a 26 yo female admitted on 03/12/17 for medically-supervised withdrawal from ETOH. Pt drinking 187-750mL vodka daily for one month. Pt has completed a 5-day Ativan taper and is to discharge tomorrow. Last day shift CIWA=3. Pt is on a regular diet. Pt reports NKDA/NKFA. Pt reports med hx: anxiety, depression, bipolar DO, and ADHD. Pt received in room after attending group, and verbalizes readiness for discharge. Bed is in low position and locked, side rails up x2, call light within reach. Will continue to monitor.
[2017-03-18] MEDS ORDERED: DICYCLOMINE HCL 20 MG TABLET PO PRN (21:00)
[2017-03-18] MEDS: QUETIAPINE FUMARATE 100 MG TABLET PO SCH (21:16)
[2017-03-18] MEDS: QUETIAPINE FUMARATE 25 MG TABLET PO PRN (23:29)
--- NOTE | 2017-03-18 23:30 | NUR ---
PRN Seroquel: Patient complains of agitation that prevents sleep. Non-pharmacological measures not effective. Administered PRN Seroquel as ordered. Will continue to monitor.
[2017-03-18] MEDS ORDERED: HYDR-3895 PO (23:56)
[2017-03-18] MEDS ORDERED: Folic Acid PO (23:56)
[2017-03-18] MEDS ORDERED: Famotidine PO (23:56)
[2017-03-18] MEDS ORDERED: Baclofen PO (23:56)
[2017-03-18] MEDS ORDERED: CLON0.1T14 PO (23:56)
[2017-03-18] MEDS ORDERED: Gabapentin PO (23:56)
[2017-03-19] VITALS: BP 99/46
--- NOTE | 2017-03-19 | NUR ---
CIWA Deferred: CIWA assessment is deferred while patient is sleeping. V/S: 97.9, 62, 16, 99%, 99/46. Addendum: 03/19/17 at 0151 by MARK REYNA RN Amended: Links added.
--- NOTE | 2017-03-19 00:30 | NUR ---
PRN Seroquel Reassessment: Patient is in bed with eyes closed. Respirations are even and unlabored. No s/s of acute distress noted. PRN Seroquel 25mg PO effective as evidenced by patient's ability to rest. Will continue to monitor.
[2017-03-19 04:00] VITALS: BP 93/52
--- NOTE | 2017-03-19 04:00 | NUR ---
CIWA Deferred: CIWA assessment is deferred for sleep. No s/s of acute distress noted. V/S: 97.6, 54, 16, 97%, 93/52. All safety precautions are in place. Will continue to monitor. Addendum: 03/19/17 at 0541 by MARK REYNA RN Amended: Links added.
--- NOTE | 2017-03-19 07:04 | NUR ---
End of Shift Note: Pt is a 26 yo female admitted to [facility] on 03/12/17 for medically-supervised withdrawal from ETOH. Pt reports med hx: anxiety, depression, bipolar DO, and ADHD. Pt is on a regular diet. Pt reports NKDA/NKFA. Pt reports drinking 187-750mL vodka daily for one month. Pt completed a 5-day Ativan taper and is to discharge today. Scheduled medication regime effectively managed s/s of withdrawal this shift and CIWA scores remained low. Last CIWA=1 at 20:00. PRN Seroquel was given for agitation. V/S stable throughout shift. Total fluid intake this shift: 1506 ml; output: urine x 2 and BM x 0. Pt currently in bed and slept 6 hours this shift. Pt endorsed to day shift nurse.
--- NOTE | 2017-03-19 07:15 | NUR ---
start of shift note: received pt from manager power nurse, pt is in stable condition no s/s of pain or discomfort. pt is admitted to [facility] for ETOH withdrawal/dependence. pt is set for discharge today. will assist pt in discharging and will continue to monitor pt for any changes. pts last ciwa is 1 and pt slept for 6 hrs.
[2017-03-19] MEDS: MULTIVITAMINS,THERAPEUTIC TABLET PO SCH (08:49)
[2017-03-19] MEDS: FLUOXETINE HCL 20 MG CAPSULE PO SCH (08:49)
[2017-03-19] MEDS: FAMOTIDINE 20 MG TABLET PO SCH (08:49)
[2017-03-19 08:50] VITALS: BP 110/60
[2017-03-19] MEDS: CLONIDINE HCL 0.1 MG TABLET PO SCH (08:50)
[2017-03-19] MEDS: GABAPENTIN 400 MG CAPSULE PO SCH (08:50)
[2017-03-19] MEDS: FOLIC ACID 1 MG TABLET PO SCH (08:50)
[2017-03-19] MEDS: THIAMINE HCL 100 MG TABLET PO SCH (08:50)
--- NOTE | 2017-03-19 10:32 | NUR ---
Discharge note: pt left the unit in stable condition no s/s of pain, discomfort, or withdrawal symptoms. pt teaching administered and pt verbalized understanding.Pt's V/S WNL. pt left with all personal belongings. pt will be transferred to able to change via private car
== END 2017-03-19 10:32 | disposition other institution (70) | DRG 895 ==
LOC: SRC 19:48
PROVIDERS: ADMIT Internal Medicine; ATTEND Internal Medicine
PROC: HZ2ZZZZ Detoxification Services for Substance Abuse Treatment (ICD-10-PCS; principal; 2017-03-12)
PROC: HZ31ZZZ Individual Counseling for Substance Abuse Treatment, Behavioral (ICD-10-PCS; 2017-03-13)
PROC: HZ41ZZZ Group Counseling for Substance Abuse Treatment, Behavioral (ICD-10-PCS; 2017-03-14)
DX: F10.220 Alcohol dependence with intoxication, uncomplicated (principal); F31.5 Bipolar disorder, current episode depressed, severe, with psychotic features; F10.230 Alcohol dependence with withdrawal, uncomplicated; F12.90 Cannabis use, unspecified, uncomplicated; Y90.2 Blood alcohol level of 40-59 mg/100 ml; F41.9 Anxiety disorder, unspecified; Z91.5 Personal history of self-harm; Z59.1 Inadequate housing; Z79.899 Other long term (current) drug therapy; Z59.0 Homelessness; F17.210 Nicotine dependence, cigarettes, uncomplicated; E53.8 Deficiency of other specified B group vitamins; F15.21 Other stimulant dependence, in remission; F90.9 Attention-deficit hyperactivity disorder, unspecified type; Z81.8 Family history of other mental and behavioral disorders; Z81.1 Family history of alcohol abuse and dependence; Z81.3 Family history of other psychoactive substance abuse and dependence; R19.7 Diarrhea, unspecified; D72.829 Elevated white blood cell count, unspecified; G47.00 Insomnia, unspecified
CPT/HCPCS: 36415; 70030-TC; 80307; 80349; 82746; 83690; 83735; 84100; 84443; 85025; 86580; 86592; 86705; 86803; 87340; 87806; G6040-TC; J3411; Q0163

== ENCOUNTER 2018-01-12 18:27 | Inpatient (IN) | payer OTHER ==
[~2018-01-12] VITALS: Ht 185.4 cm; Wt 93.0 kg
[~2018-01-12 18:27] MED LIST: Baclofen PO; CLON0.1T14 PO; FLUO-120 PO; Famotidine PO; Folic Acid PO; Gabapentin PO; HYDR-3895 PO; QUET100T PO
[2018-01-12 22:30] VITALS: BP 138/75
[2018-01-12] MEDS ORDERED: MIRALAX 17 GM POWD.PACK PO PRN (22:30)
[2018-01-12] MEDS ORDERED: LORAZEPAM 1 MG TABLET PO PRN ×2 (22:30)
[2018-01-12] MEDS ORDERED: MAG HYDROX/AL HYDROX/SIMETH 30 ML LIQUID UDC PO PRN (22:30)
[2018-01-12] MEDS ORDERED: NICOTINE POLACRILEX 4 MG GUM-PK OF TEN BC PRN (22:30)
[2018-01-12] MEDS ORDERED: LORAZEPAM 2 MG/1 ML VIAL IM PRN (22:30)
[2018-01-12] MEDS ORDERED: diphenhydrAMINE 50 MG CAPSULE PO PRN (22:30)
[2018-01-12] MEDS ORDERED: ONDANSETRON ODT 4 MG TAB.RAPDIS SL PRN (22:30)
[2018-01-12] MEDS ORDERED: THIAMINE HCL 200 MG/2 ML VIAL IM ONE (22:30)
[2018-01-12] MEDS ORDERED: NICOTINE 14 MG/24HR PATCH TD PRN (22:30)
[2018-01-12] MEDS ORDERED: CLONIDINE HCL 0.1 MG TABLET PO PRN (22:30)
[2018-01-12] MEDS ORDERED: ONDANSETRON 4 MG/2 ML VIAL IM PRN (22:30)
[2018-01-12] MEDS ORDERED: IBUPROFEN 400 MG TABLET PO PRN (22:30)
[2018-01-12] MEDS ORDERED: ACETAMINOPHEN 325 MG TABLET PO PRN (22:30)
[2018-01-12] MEDS ORDERED: DICYCLOMINE HCL 20 MG TABLET PO PRN (22:30)
[2018-01-12] MEDS ORDERED: MAGNESIUM HYDROXIDE 30 ML LIQUID UDC PO PRN (22:30)
[2018-01-12] MEDS ORDERED: LOPERAMIDE HCL 2 MG CAPSULE PO PRN ×2 (22:30)
[2018-01-12 23:00] LABS: BASOPHILS # (AUTO) 0.1 K/uL (0.0-8.0); BASOPHILS % (AUTO) 0.7 % (0.0-2.0); EOSINOPHILS # (AUTO) 0.2 K/uL (0.0-0.7); EOSINOPHILS % (AUTO) 1.5 % (0.0-7.0); HEMATOCRIT 46.6 % (36.7-47.1); HEMOGLOBIN 15.9 g/dL (12.5-16.3); LYMPHOCYTES # (AUTO) 3.8 K/uL (20.0-40.0); LYMPHOCYTES % (AUTO) 34.7 % (20.5-51.5); MEAN CORPUSCULAR HEMOGLOBIN 32.4 uug (23.8-33.4); MEAN CORPUSCULAR HGB CONC 34 g/dL (32.5-36.3); MEAN CORPUSCULAR VOLUME 94.6 fL (73.0-96.2); MONOCYTES # (AUTO) 0.8 K/uL (2.0-10.0); MONOCYTES % (AUTO) 7.5 % (0.0-11.0); NEUTROPHILS # (AUTO) 6.1 K/uL (1.8-8.9); NEUTROPHILS % (AUTO) 55.6 % (38.5-71.5); PLATELET COUNT (AUTO) 512 K/uL (152-348); RED BLOOD CELL COUNT(AUTO) 4.92 MIL/uL (4.06-5.63); WHITE BLOOD COUNT (AUTO) 10.9 K/uL (3.6-10.2)
[2018-01-12 23:15] LABS: *AMPHETAMINE, URINE NEGATIVE (NEGATIVE); *BARBITURATE, URINE NEGATIVE (NEGATIVE); *CANNABINOID, URINE POSITIVE (NEGATIVE); *COCCAINE, URINE NEGATIVE (NEGATIVE); *OPIATE, URINE NEGATIVE (NEGATIVE); *PHENCYCLIDINE SCREEN,URINE NEGATIVE (NEGATIVE)
[2018-01-12 23:17] LABS: BILIRUBIN,TOTAL 0.3 mg/dL (0.2-1.0); CREATININE 1.1 mg/dL (0.6-1.3); MAGNESIUM 2.1 mg/dL (1.8-2.4); POTASSIUM 3.9 mmol/L (3.5-5.1); TOTAL PROTEIN, SERUM 7.8 g/dL (6.4-8.2)
[2018-01-12] MEDS ORDERED: LORAZEPAM 1 MG TABLET PO SCH (23:30)
[2018-01-13] VITALS: BP 145/79
[2018-01-13] MEDS ORDERED: BUPR-96 PO (01:58)
[2018-01-13] MEDS ORDERED: DIVA500T2 PO (01:58)
[2018-01-13] MEDS ORDERED: BREX4TAB PO (01:58)
[2018-01-13 04:00] VITALS: BP 105/57
[2018-01-13 08:00] VITALS: BP 111/59
[2018-01-13] MEDS ORDERED: TUBERCULIN,PURIF.PROT.DERIV. 5 TU/0.1 ML TEST ID ONE (09:00)
[2018-01-13] MEDS ORDERED: GABAPENTIN 300 MG CAPSULE PO SCH (09:00)
[2018-01-13] MEDS: FOLIC ACID 1 MG TABLET PO SCH (09:30)
[2018-01-13] MEDS: LORAZEPAM 1 MG TABLET PO SCH ×4 (09:30→21:04)
[2018-01-13] MEDS: THIAMINE HCL 100 MG TABLET PO SCH (09:30)
[2018-01-13] MEDS: MULTIVITAMINS,THERAPEUTIC TABLET PO SCH (09:30)
[2018-01-13 12:00] VITALS: BP 138/74
[2018-01-13] MEDS: GABAPENTIN 300 MG CAPSULE PO SCH ×2 (14:23→21:04)
[2018-01-13 16:00] VITALS: BP 105/72
[2018-01-13] MEDS ORDERED: buPROPion XL 150 MG TAB.SR.24H PO SCH (17:15)
[2018-01-13] MEDS: FLUOXETINE HCL 20 MG CAPSULE PO SCH (18:37)
[2018-01-13 20:00] VITALS: BP 120/75
[2018-01-13] MEDS: QUETIAPINE FUMARATE 100 MG TABLET PO SCH (21:04)
[2018-01-13] MEDS: DIVALPROEX 500 MG TABLET.DR PO SCH (21:05)
[2018-01-14 08:07] LABS: HEPATITIS B SURFACE AG Negative (Negative)
[2018-01-14 08:45] VITALS: BP 119/64
[2018-01-14] MEDS: FOLIC ACID 1 MG TABLET PO SCH (08:49)
[2018-01-14] MEDS: LORAZEPAM 1 MG TABLET PO SCH ×3 (08:49→21:05)
[2018-01-14] MEDS: MULTIVITAMINS,THERAPEUTIC TABLET PO SCH (08:49)
[2018-01-14] MEDS: THIAMINE HCL 100 MG TABLET PO SCH (08:49)
[2018-01-14] MEDS: FLUOXETINE HCL 20 MG CAPSULE PO SCH (08:50)
[2018-01-14] MEDS: GABAPENTIN 300 MG CAPSULE PO SCH ×2 (08:52→14:41)
[2018-01-14] MEDS ORDERED: BUPR100T6 PO (09:08)
[2018-01-14] MEDS: buPROPion SR 100 MG TABLET.SA PO SCH (09:28)
[2018-01-14 13:36] VITALS: BP 144/92
[2018-01-14 17:00] VITALS: BP 130/79
[2018-01-14 20:00] VITALS: BP 108/65
[2018-01-14] MEDS ORDERED: GABAPENTIN 300 MG CAPSULE PO SCH (21:00)
[2018-01-14] MEDS: QUETIAPINE FUMARATE 100 MG TABLET PO SCH (21:05)
[2018-01-14] MEDS: DIVALPROEX 500 MG TABLET.DR PO SCH (21:05)
[2018-01-15] VITALS: BP 107/64
[2018-01-15 04:00] VITALS: BP 115/66
[2018-01-15 08:55] VITALS: BP 135/78
[2018-01-15] MEDS: GABAPENTIN 300 MG CAPSULE PO SCH ×3 (08:56→20:43)
[2018-01-15] MEDS: FOLIC ACID 1 MG TABLET PO SCH (08:56)
[2018-01-15] MEDS: buPROPion SR 100 MG TABLET.SA PO SCH (08:56)
[2018-01-15] MEDS: MULTIVITAMINS,THERAPEUTIC TABLET PO SCH (08:56)
[2018-01-15] MEDS: THIAMINE HCL 100 MG TABLET PO SCH (08:56)
[2018-01-15] MEDS: FLUOXETINE HCL 20 MG CAPSULE PO SCH (08:56)
[2018-01-15] MEDS ORDERED: LORAZEPAM 1 MG TABLET PO SCH ×2 (09:00→21:00)
[2018-01-15 12:00] VITALS: BP 138/75
[2018-01-15] MEDS ORDERED: LORAZEPAM 1 MG TABLET PO ONE (12:00)
[2018-01-15] MEDS: LORAZEPAM 1 MG TABLET PO SCH ×2 (14:00→16:31)
[2018-01-15 17:00] VITALS: BP 128/62
[2018-01-15 20:00] VITALS: BP 135/81
[2018-01-15] MEDS: QUETIAPINE FUMARATE 100 MG TABLET PO SCH (20:43)
[2018-01-15] MEDS: DIVALPROEX 500 MG TABLET.DR PO SCH (20:44)
[2018-01-16] VITALS: BP_SYST 104; BP_DIAS 65; BP_DIAS 66
[2018-01-16 04:00] VITALS: BP 108/54
[2018-01-16 08:07] VITALS: BP 123/87
[2018-01-16] MEDS: FLUOXETINE HCL 20 MG CAPSULE PO SCH (08:22)
[2018-01-16] MEDS: THIAMINE HCL 100 MG TABLET PO SCH (08:23)
[2018-01-16] MEDS: GABAPENTIN 300 MG CAPSULE PO SCH ×3 (08:23→21:38)
[2018-01-16] MEDS: MULTIVITAMINS,THERAPEUTIC TABLET PO SCH (08:23)
[2018-01-16] MEDS: FOLIC ACID 1 MG TABLET PO SCH (08:23)
[2018-01-16] MEDS: buPROPion SR 100 MG TABLET.SA PO SCH (08:23)
[2018-01-16] MEDS: LORAZEPAM 1 MG TABLET PO SCH ×3 (08:23→21:38)
[2018-01-16 13:51] VITALS: BP 128/88
[2018-01-16 16:01] VITALS: BP 130/82
[2018-01-16 20:00] VITALS: BP 144/80
[2018-01-16] MEDS: DIVALPROEX 500 MG TABLET.DR PO SCH (21:38)
[2018-01-16] MEDS: QUETIAPINE FUMARATE 100 MG TABLET PO SCH (21:38)
[2018-01-17] VITALS: BP 97/62
[2018-01-17 04:00] VITALS: BP 98/55
[2018-01-17 08:00] VITALS: BP 125/49
[2018-01-17] MEDS: FOLIC ACID 1 MG TABLET PO SCH (08:22)
[2018-01-17] MEDS: GABAPENTIN 300 MG CAPSULE PO SCH ×3 (08:23→21:22)
[2018-01-17] MEDS: THIAMINE HCL 100 MG TABLET PO SCH (08:23)
[2018-01-17] MEDS: FLUOXETINE HCL 20 MG CAPSULE PO SCH (08:23)
[2018-01-17] MEDS: LORAZEPAM 1 MG TABLET PO SCH ×2 (08:23→21:22)
[2018-01-17] MEDS: MULTIVITAMINS,THERAPEUTIC TABLET PO SCH (08:23)
[2018-01-17] MEDS: buPROPion SR 100 MG TABLET.SA PO SCH (08:23)
[2018-01-17 12:00] VITALS: BP 130/75
[2018-01-17 16:00] VITALS: BP 130/78
[2018-01-17 20:00] VITALS: BP 140/80
[2018-01-17] MEDS: QUETIAPINE FUMARATE 100 MG TABLET PO SCH (21:22)
[2018-01-17] MEDS: DIVALPROEX 500 MG TABLET.DR PO SCH (21:23)
[2018-01-18] VITALS: BP 135/85
[2018-01-18 08:00] VITALS: BP 102/59
[2018-01-18] MEDS: THIAMINE HCL 100 MG TABLET PO SCH (08:47)
[2018-01-18] MEDS: buPROPion SR 100 MG TABLET.SA PO SCH (08:47)
[2018-01-18] MEDS: FOLIC ACID 1 MG TABLET PO SCH (08:48)
[2018-01-18] MEDS: GABAPENTIN 300 MG CAPSULE PO SCH ×3 (08:48→20:24)
[2018-01-18] MEDS: MULTIVITAMINS,THERAPEUTIC TABLET PO SCH (08:48)
[2018-01-18] MEDS: FLUOXETINE HCL 20 MG CAPSULE PO SCH (08:48)
[2018-01-18] MEDS ORDERED: LORAZEPAM 1 MG TABLET PO SCH (09:00)
[2018-01-18 12:00] VITALS: BP 130/74
[2018-01-18] MEDS ORDERED: FLUO-120 PO (14:12)
[2018-01-18] MEDS ORDERED: GABA-534 PO (14:12)
[2018-01-18] MEDS ORDERED: QUET100T PO (14:12)
[2018-01-18] MEDS ORDERED: BUPR100T6 PO (14:12)
[2018-01-18] MEDS ORDERED: DIVA500T2 PO (14:12)
[2018-01-18] MEDS ORDERED: NICO-671 TD (14:12)
[2018-01-18 16:00] VITALS: BP 132/74
[2018-01-18 20:00] VITALS: BP 138/84
[2018-01-18] MEDS: QUETIAPINE FUMARATE 100 MG TABLET PO SCH (20:23)
[2018-01-18] MEDS: DIVALPROEX 500 MG TABLET.DR PO SCH (20:24)
[2018-01-19 08:00] VITALS: BP 140/77
[2018-01-19] MEDS: FLUOXETINE HCL 20 MG CAPSULE PO SCH (08:57)
[2018-01-19] MEDS: THIAMINE HCL 100 MG TABLET PO SCH (08:57)
[2018-01-19] MEDS: FOLIC ACID 1 MG TABLET PO SCH (08:57)
[2018-01-19] MEDS: GABAPENTIN 300 MG CAPSULE PO SCH ×3 (08:57→20:41)
[2018-01-19] MEDS: buPROPion SR 100 MG TABLET.SA PO SCH (08:57)
[2018-01-19] MEDS: MULTIVITAMINS,THERAPEUTIC TABLET PO SCH (08:57)
[2018-01-19 12:00] VITALS: BP 131/91
[2018-01-19 16:00] VITALS: BP 128/89
[2018-01-19 20:00] VITALS: BP 143/83
[2018-01-19] MEDS: QUETIAPINE FUMARATE 100 MG TABLET PO SCH (20:41)
[2018-01-19] MEDS: DIVALPROEX 500 MG TABLET.DR PO SCH (20:42)
[2018-01-20 04:00] VITALS: BP 112/70
== END 2018-01-20 05:30 | DRG 895 ==
LOC: SRC 21:56
PROVIDERS: ADMIT Internal Medicine; ATTEND Internal Medicine
PROC: HZ2ZZZZ Detoxification Services for Substance Abuse Treatment (ICD-10-PCS; principal; 2018-01-12)
PROC: HZ31ZZZ Individual Counseling for Substance Abuse Treatment, Behavioral (ICD-10-PCS; 2018-01-13)
PROC: HZ41ZZZ Group Counseling for Substance Abuse Treatment, Behavioral (ICD-10-PCS; 2018-01-13)
DX: F10.232 Alcohol dependence with withdrawal with perceptual disturbance (principal); K85.20 Alcohol induced acute pancreatitis without necrosis or infection; I15.9 Secondary hypertension, unspecified; F31.32 Bipolar disorder, current episode depressed, moderate; Y90.9 Presence of alcohol in blood, level not specified; F12.20 Cannabis dependence, uncomplicated; F41.9 Anxiety disorder, unspecified; Z79.899 Other long term (current) drug therapy; F17.210 Nicotine dependence, cigarettes, uncomplicated; Z81.1 Family history of alcohol abuse and dependence; Z83.3 Family history of diabetes mellitus; Z81.8 Family history of other mental and behavioral disorders; Z82.49 Family history of ischemic heart disease and other diseases of the circulatory system; Z91.5 Personal history of self-harm; F90.9 Attention-deficit hyperactivity disorder, unspecified type; Z91.89 Other specified personal risk factors, not elsewhere classified; F16.11 Hallucinogen abuse, in remission; G47.00 Insomnia, unspecified; F15.21 Other stimulant dependence, in remission
CPT/HCPCS: 36415; 70030-TC; 80307; 80349; 83735; 85025; 86580; 86592; 86705; 86803; 87340; 87806; A4663; G0480; J3411

== ENCOUNTER 2018-09-19 19:06 | Inpatient (IN) | payer OTHER ==
[~2018-09-19] VITALS: Ht 185.4 cm; Wt 75.7 kg
[~2018-09-19 19:06] MED LIST changes: +BREX4TAB PO; +BUPR100T6 PO; +DIVA500T2 PO; +GABA-534 PO; -Gabapentin PO; +NICO-671 TD
--- NOTE | 2018-09-19 22:05 | NUR ---
PRE ADMISSION NOTE Pt is a 27 y/o male seen at intake, A&Ox4, ambulatory with steady gait. Pt is here for ETOH (Rum, Whiskey and/or Vodka) 375-750 ml daily for 6 months, last intake this afternoon of 200-250 ml. Pt presents with anxiety, flushed skin, sweats, and headache. Pt also used methamphetamine 0.25-0.5 g oral inhalation 3-5 times per week for 6 months, last intake of 0.5 g on 09/14/18 and marijuana 0.5 g daily for 6 months, last intake of 0.5 g today. Pt was admitted to [facility] on January 12, 2018 and was sober for approximately 1 month after discharge. Pt has PMH of bipolar disorder and depression, states he stopped taking his home medications and was tapered off of his Depakote and Wellbutrin. Pt denies hx of withdrawal-induced seizures, states he is not sure if he had psychosis from withdrawal of ETOH and methamphetamine. Vital signs: BP 123/59, HR 70, RR 16, T 98.4, 02 96% and pain 3/10 for headache. Pt is stable to arrive on the unit, continuation of care endorsed to primary care nurse.
[2018-09-19] MEDS ORDERED: MIRALAX 17 GM POWD.PACK PO PRN (22:30)
[2018-09-19] MEDS ORDERED: MAG HYDROX/AL HYDROX/SIMETH 30 ML LIQUID UDC PO PRN (22:30)
[2018-09-19] MEDS ORDERED: ACETAMINOPHEN 325 MG TABLET PO PRN (22:30)
[2018-09-19] MEDS ORDERED: THIAMINE HCL 200 MG/2 ML VIAL IM ONE (22:30)
[2018-09-19] MEDS ORDERED: DICYCLOMINE HCL 20 MG TABLET PO PRN (22:30)
[2018-09-19] MEDS ORDERED: LOPERAMIDE HCL 2 MG CAPSULE PO PRN ×2 (22:30)
[2018-09-19] MEDS ORDERED: ONDANSETRON 4 MG/2 ML VIAL IM PRN (22:30)
[2018-09-19] MEDS ORDERED: MAGNESIUM HYDROXIDE 30 ML LIQUID UDC PO PRN (22:30)
[2018-09-19] MEDS ORDERED: ONDANSETRON ODT 4 MG TAB.RAPDIS SL PRN (22:30)
[2018-09-19] MEDS ORDERED: LORAZEPAM 1 MG TABLET PO PRN (22:30)
[2018-09-19 22:47] LABS: BASOPHILS # (AUTO) 0.1 K/uL (0.0-8.0); BASOPHILS % (AUTO) 1.4 % (0.0-2.0); EOSINOPHILS # (AUTO) 0.2 K/uL (0.0-0.7); EOSINOPHILS % (AUTO) 1.6 % (0.0-7.0); HEMATOCRIT 42.2 % (36.7-47.1); HEMOGLOBIN 14.6 g/dL (12.5-16.3); LYMPHOCYTES # (AUTO) 4.1 K/uL (20.0-40.0); LYMPHOCYTES % (AUTO) 43.2 % (20.5-51.5); MEAN CORPUSCULAR HEMOGLOBIN 32.1 uug (23.8-33.4); MEAN CORPUSCULAR HGB CONC 35 g/dL (32.5-36.3); MEAN CORPUSCULAR VOLUME 92.6 fL (73.0-96.2); MONOCYTES # (AUTO) 0.7 K/uL (2.0-10.0); NEUTROPHILS # (AUTO) 4.5 K/uL (1.8-8.9); NEUTROPHILS % (AUTO) 46.8 % (38.5-71.5); PLATELET COUNT (AUTO) 382 K/uL (152-348); RED BLOOD CELL COUNT(AUTO) 4.55 MIL/uL (4.06-5.63); WHITE BLOOD COUNT (AUTO) 9.5 K/uL (3.6-10.2)
[2018-09-19 22:50] LABS: *AMPHETAMINE, URINE NEGATIVE (NEGATIVE); *BARBITURATE, URINE NEGATIVE (NEGATIVE); *CANNABINOID, URINE POSITIVE (NEGATIVE); *COCCAINE, URINE NEGATIVE (NEGATIVE); *OPIATE, URINE NEGATIVE (NEGATIVE); *PHENCYCLIDINE SCREEN,URINE NEGATIVE (NEGATIVE)
[2018-09-19 22:55] LABS: BILIRUBIN,TOTAL 0.2 mg/dL (0.2-1.0); CREATININE 0.9 mg/dL (0.6-1.3); MAGNESIUM 2.5 mg/dL (1.8-2.4); POTASSIUM 3.1 mmol/L (3.5-5.1); TOTAL PROTEIN, SERUM 7.6 g/dL (6.4-8.2)
[2018-09-19 23:10] LABS: THYROID STIMULATING HORMONE 2.975 mIU/mL (0.358-3.740)
[2018-09-19] MEDS ORDERED: POTASSIUM CHLORIDE 20 MEQ TAB.PRT.SR PO ONE (23:30)
--- NOTE | 2018-09-19 23:30 | NUR ---
ADMISSION NOTE Patient is a 27-year-old male admitted on 09/19/18 for ETOH withdrawal, arrived on the unit at 2232. Patient was seen at intake by LEISA Alvarado, who wrote the pre-admission note. Patient reports that he does not feel intoxicated at this time, complaining of anxiety and a mild headache. Patient is alert and oriented x4, verbally responsive and coherent, ambulatory with a steady gait. Patient states that common withdrawal symptoms include the following: "headache, nausea, sweats, insomnia, some shakes, some anxiety." Patient denies any withdrawal induced seizure activity, denies any withdrawal induced cardiac complications or blackouts. Substance Abuse History: 1. ETOH per patient, usually rum, occasionally whiskey or vodka. Approximately 375-750mL daily for the past 6 months. Last drink was this afternoon, 09/19/18, of 250mL. Patient reports that he started drinking alcohol when he was about 14 or 15. 2. Methamphetamine oral inhalation 0.25-0.5 grams about 3-5 times weekly, not used daily. Last use was 09/14/18 of 0.25-0.5 grams. Patient states he started using meth at age 20. 3. Cannabis oral inhalation 0.5 grams daily for the past 6 months. Last use was 09/19/18 of 0.5 grams. Patient has been using cannabis since he was about 14 or 15. Patient states that he is seeking treatment today because of the negative consequences he has experienced in the last 6 months. He states, "I've been thinking about it for a while." When asked what prompted him to finally come back for detox he responded, after seeing another relationship fall apart, I lost my job and Im just sick of failing. It was a shit show. Patient further explains, [place] been applying to other jobs and I keep getting shot down. Im here out of fear of something else falling apart. Patient concludes, I know I can do more in life than I am letting myself. Patient states that after leaving [facility] earlier this year (December 2017) he went to [place] in [place] for three days and went from one sober living in [place], [place], to another. He states, the sober living didnt have very much accountability and after about a month of sobriety I was drinking again and then smoking and using drugs. The patient states that he is his only support, being that he was kicked out by his family at age 20. He states, Im very spiritual and thats what drives me. The patient was at [facility] in February 2017 as well. Patients longest period of sobriety is three years, from [id number]. Patient has PMHX of anxiety, depression, ADHD, insomnia and bipolar disorder but does not currently take any medications for his psych diagnoses. Patient does not have a PCP and does not currently attend AA but verbalizes that he would like to work the program more seriously and find the right place and the right group for him. Patient does not take medications at home with exception to melatonin sometimes. Patient states that "my aunts and uncles on both my mom's side and my dad's side deal with alcoholism and drugs." Patient is 63 and weighs 167lbs. per standing scale. Patients skin is intact, PERRLA, lung sounds are clear bilaterally, abdomen is soft and non-tender. Patient reports last BM was this morning. Initial vitals as follows: BP 123/59, HR 70, RR 16, temp 98.2, O2 sat 96%, pain 3/10 headache. Initial CIWA 10. Patient has been oriented to the unit, teaching provided on unit policies and protocols. Patient verbalizes understanding to instruction. Patient is on fall and seizure precautions. Safety measures in place, side rails up x2, bed locked in low position, call light within reach. Will continue to monitor.
[2018-09-19] MEDS: diphenhydrAMINE 50 MG CAPSULE PO PRN (23:55)
[2018-09-19] MEDS: IBUPROFEN 400 MG TABLET PO PRN (23:55)
[2018-09-19] MEDS: LORAZEPAM 1 MG TABLET PO PRN (23:55)
--- NOTE | 2018-09-19 23:55 | NUR ---
PRN ATIVAN 1mg, BENADRYL, & MOTRIN Patient has a CIWA score of 10 for anxiety, restlessness, diaphoresis, and headache. Patient given Ativan 1mg PO for CIWA between 5-15. Patient given Benadryl PO for difficulty sleeping and PRN Motrin PO for headache. Safety measures in place, side rails up x2, bed locked in low position, call light within reach. Will monitor for effectiveness.
[2018-09-20] VITALS (7 sets, daily range): BP systolic 82–138; BP diastolic 50–80
--- NOTE | 2018-09-20 00:55 | NUR ---
PRN ATIVAN 1mg, BENADRYL, & MOTRIN REASSESSMENT Upon reassessment, patient is observed sleeping in his bed, eyes closed, respirations even and unlabored. Unable to reassess at this time due to patient sleeping. Safety measures in place, call light within reach. Will continue to monitor.
--- NOTE | 2018-09-20 04:00 | NUR ---
CIWA DEFERRED CIWA deferred at this time due to patient sleeping; to be assessed and scored while patient is awake. Respirations even and unlabored. Safety measures in place, side rails up x2, bed locked in low position, call light within reach. Will continue to monitor.
--- NOTE | 2018-09-20 07:13 | NUR ---
END OF SHIFT Patient is a 27-year-old male admitted on 09/19/18 for ETOH withdrawal. Patient is not currently on a taper, with PRN meds for signs and symptoms of withdrawal. Patients last CIWA was 10. PRN Ativan 1mg was given PO, along with PRN Motrin and PRN Benadryl. PRN Benadryl was effective in helping patient fall asleep. Patients potassium was low, 3.1, replaced with K-Dur PO. Patient slept for 6 hours, total intake of 450mL, void x1, stool x0. Patient is on fall and seizure precautions with no history of seizure. Safety measures in place, side rails up x2, bed locked in low position, call light within reach.
--- NOTE | 2018-09-20 07:45 | NUR ---
START OF SHIFT Pt is a 27 yr old male, admitted on 09/19/18 for ETOH withdrawal and is on PRN's for s/s of w/d. Received report from restaurant shift leader nurse. Pt was given Ativan 1mg PO PRN, Benadryl PRN and Motrin PRN during the night. Pt slept for 6 hrs. Last CIWA score was 10. Pt is currently in bed sleeping with respirations even and unlabored. Skin is intact, warm and dry to touch. Safety precautions observed. Call light is within reach. will continue to monitor.
[2018-09-20] MEDS ORDERED: TUBERCULIN,PURIF.PROT.DERIV. 5 TU/0.1 ML TEST ID ONE (09:00)
[2018-09-20] MEDS: THIAMINE HCL 100 MG TABLET PO SCH (09:11)
[2018-09-20] MEDS: MULTIVITAMINS,THERAPEUTIC TABLET PO SCH (09:11)
[2018-09-20] MEDS: IBUPROFEN 400 MG TABLET PO PRN (09:11)
[2018-09-20] MEDS: LORAZEPAM 1 MG TABLET PO PRN ×2 (09:11→19:08)
[2018-09-20] MEDS: FOLIC ACID 1 MG TABLET PO SCH (09:11)
--- NOTE | 2018-09-20 09:11 | NUR ---
PRN GIVEN Pt is c/o anxiety, sweats, chills, nausea and headache. CIWA score was 10. Pt was given Ativan 1mg PO PRN and Motrin 400mg PO PRN was given as ordered. Encouraged increase fluid intake for hydration. Will continue to monitor.
--- NOTE | 2018-09-20 10:11 | NUR ---
PRN RE-ASSESSMENT Ativan 1mg PO PRN and Motrin 400mg PO PRN was effective. Pt denies any headache. CIWA score is 8. Will continue to monitor.
[2018-09-20] MEDS ORDERED: 5 DAY TAPER OF LORAZEPAM -SERENITY PROTOCOL PO PRN (11:30)
--- NOTE | 2018-09-20 12:00 | NUR ---
CIWA ASSESSMENT Pt is c/o anxiety, agitation, sweats, chills, restlessness and headache. CIWA score is 11. encourage increase fluid intake. Pt is to start on 5 day Ativan taper as ordered.
[2018-09-20] MEDS: LORAZEPAM 1 MG TABLET PO SCH ×3 (13:11→21:18)
[2018-09-20] MEDS ORDERED: FAMOTIDINE 20 MG PO SCH (14:15)
[2018-09-20] MEDS: FAMOTIDINE 20 MG TABLET PO SCH (16:41)
--- NOTE | 2018-09-20 19:10 | NUR ---
END OF SHIFT/PRN GIVEN Pt is a 27 yr old male, AA&OX4. pt was admitted on 09/19/18 for EOTH withdrawal and started on a 5 day Ativan taper as ordered. Pt has been c/o increase anxiety, agitation, sweats, chills and was requesting for Ativan. Pt received Ativan 1mg PO PRN at 0911 and received Ativan 1mg at this time for CIWA of 9. Endorsed to interrelated special education teacher nurse to continue f/u with re-assessment. Pt also was c/o of headache and received Motrin 400mg PO PRN at 0911 and medication was effective. Pt was encouraged increase fluid intake. Safety precautions observed. Call light is within reach.
--- NOTE | 2018-09-20 20:00 | NUR ---
Start of Shift Patient noted to be anxious and tremulous. Patient was administered Ativan PRN at 1910. Patient appears disheveled. Patient is easily distracted and has no eye contact with being spoken to. Fall, universal, seizure and safety prec in place. Call light within reach. Latest CIWA=7. Will continue to monitor.
--- NOTE | 2018-09-20 20:09 | NUR ---
Ativan reassess Patient continues to verbalize anxiety and noted with tremors. Per patient, the Ativan PRN administered was somewhat effective.
[2018-09-20] MEDS: CLONIDINE HCL 0.1 MG TABLET PO PRN (23:20)
[2018-09-20] MEDS: diphenhydrAMINE 50 MG CAPSULE PO PRN (23:21)
--- NOTE | 2018-09-20 23:21 | NUR ---
PRN Clonidine and Benadryl Patient c/o anxiety and is easily agitated. Patient also c/o sleeplessnes. Administered Clondine 0.1 mg PO PRN and Benadryl 50 mg PO PRN. Will reassess.
[2018-09-21] VITALS: BP 117/66
--- NOTE | 2018-09-21 | NUR ---
CIWA=8 Patient c/o anxiety, tremors and is noted to be melancholic and labile.
--- NOTE | 2018-09-21 00:20 | NUR ---
Clonidine and Benadryl reassess Patient verbalized feeling less anxious and starting to get more sleepy.
[2018-09-21 04:00] VITALS: BP 109/64
--- NOTE | 2018-09-21 04:00 | NUR ---
CIWA=8 Patient is noted to have labile mood. He is easily irritable and at times avoids conversation. Patient with intermittent anxiety and continuously has tremors.
--- NOTE | 2018-09-21 07:18 | NUR ---
End of Shift Patient continues to exhibit labile affect. Patient c/o anxiety and is noted to have tremors. Patient is depressed and melancholic. Patient continues to be on Ativan taper. PRN Clonidine and Benadryl administered during the shift for agitation and sleeplessness, respectively. Fall, universal, seizure and safety prec in place. Call light within reach. Latest CIWA=8, slept for 6 hours. Endorsed to AM shift nurse for continuity of care.
--- NOTE | 2018-09-21 07:30 | NUR ---
Start of Shift Composite Bond Technician received report on 27 year old male admitted to [facility] on 09/19/18 for medical management of ETOH withdrawals. Pt endorses NKA, full code and regular diet. PMH of Acid Reflux and PPH of anxiety, depression, ADHD, Bipolar and Insomnia. Pt currently on an Ativan taper, with last CIWA 8, per NOC report. Pt had no PRN medications administered on NOC, per report. Composite Bond Technician encounters pt in pts room with pt resting with eyes closed. Even and unlabored respirations noted. Bed in low position with wheels locked and side rails up x2. Will continue to monitor, support and encourage according to plan of care.
--- NOTE | 2018-09-21 08:30 | NUR ---
CIWA 10 Pt is anxious, restless, tremulous, diaphoretic and complains of chills and nausea. Will continue to monitor, support and encourage according to plan of care.
[2018-09-21 08:36] VITALS: BP 109/80
[2018-09-21 09:07] LABS: HEPATITIS B SURFACE AG Negative (Negative)
[2018-09-21] MEDS: FOLIC ACID 1 MG TABLET PO SCH (09:44)
[2018-09-21] MEDS: MULTIVITAMINS,THERAPEUTIC TABLET PO SCH (09:44)
[2018-09-21] MEDS: THIAMINE HCL 100 MG TABLET PO SCH (09:44)
[2018-09-21] MEDS: LORAZEPAM 1 MG TABLET PO SCH ×4 (09:44→22:00)
[2018-09-21] MEDS: FAMOTIDINE 20 MG TABLET PO SCH (09:44)
[2018-09-21 12:00] VITALS: BP 126/75
--- NOTE | 2018-09-21 12:00 | NUR ---
CIWA 9 Pt is tremulous, diaphoretic, anxious and restless. Will continue to monitor, support according to plan of care.
[2018-09-21 15:44] LABS: MAGNESIUM 2.3 mg/dL (1.8-2.4); POTASSIUM 3.9 mmol/L (3.5-5.1)
[2018-09-21 16:30] VITALS: BP 116/74
--- NOTE | 2018-09-21 16:30 | NUR ---
CIWA 7 Pt is anxious, restless and tremulous with diaphoresis. Will continue to monitor, support and encourage according to plan of care.
--- NOTE | 2018-09-21 19:13 | NUR ---
End of Shift Junior Assistant Manager provided report on 27 year old male admitted to [facility] on 09/19/18 for medical management of ETOH withdrawals. Pt endorses NKA, full code and regular diet. PMH of Acid Reflux and PPH of anxiety, depression, ADHD, Bipolar and Insomnia. Pt currently on an Ativan taper, with last CIWA 7, recorded at 1630. Pt had no PRN medications administered on this shift. Pt is A/O x4 and able to make needs known. Pt with a scattered and tangential thought process, with complaints of fogginess. Pt with a clear speech pattern. Pt is anxious and restless with tremors and diaphoresis. Bed in low position with wheels locked and side rails up x2.
[2018-09-21 20:00] VITALS: BP 129/63
--- NOTE | 2018-09-21 20:00 | NUR ---
Start of Shift Patient observed to be pacing along the hallway and fidgety. Patient is hyperverbal and noted to have racing thoughts. Patient appears disheveled. Patient is easily distracted and has no eye contact with being spoken to. Fall, universal, seizure and safety prec in place. Call light within reach. Latest CIWA=11. Will continue to monitor.
[2018-09-21] MEDS: MELATONIN 3 MG TABLET PO PRN (22:00)
[2018-09-21] MEDS: CLONIDINE HCL 0.1 MG TABLET PO PRN (22:00)
--- NOTE | 2018-09-21 22:01 | NUR ---
PRN Clonidine and Melatonin Patient c/o increasing agitation and sleeplessness. Administered Clonidine 0.1 mg PO PRN and Melatonin 3 mg PO PRN. Will reassess.
--- NOTE | 2018-09-21 23:00 | NUR ---
Clonidine and Melatonin reassess Patient verbalized feeling relief from agitation and anxiety. Patient stated that he still does not feel sleepy.
[2018-09-21] MEDS: diphenhydrAMINE 50 MG CAPSULE PO PRN (23:25)
--- NOTE | 2018-09-21 23:25 | NUR ---
PRN Benadryl Patient verbalized sleeplessness. Administered Benadryl 50 mg PO PRN. Will reassess.
[2018-09-22] VITALS: BP 115/66
--- NOTE | 2018-09-22 | NUR ---
CIWA=10 Patient is anxious, dramatic and speaks with a loud voice. Patient noted to have labile mood and is disheveled.
--- NOTE | 2018-09-22 00:25 | NUR ---
Benadryl reassess Patient lying on bed, eyes closed and with no SOB nor facial grimacing noted.
[2018-09-22 04:00] VITALS: BP 109/71
--- NOTE | 2018-09-22 04:00 | NUR ---
CIWA=8 Patient continues to have anxiety, verbalizing feeling "funny" at times. Patient with tremors and is sometimes dramatic with his voice and gestures.
--- NOTE | 2018-09-22 07:16 | NUR ---
End of Shift Patient continues to be dramatic at times and speaks with a loud voice. Patient continually c/o anxiety and is noted to have tremors. Patient with labile affect. Patient continues to be on Ativan taper. PRN Clonidine, Melatonin and Benadryl administered during the shift for agitation and sleeplessness, respectively. Fall, universal, seizure and safety prec in place. Call light within reach. Latest CIWA=8, slept for 5 hours. Endorsed to AM shift nurse for continuity of care.
--- NOTE | 2018-09-22 07:30 | NUR ---
Start of Shift Shield Runner received report on 27 year old male admitted to [facility] on 09/19/18 for medical management of ETOH withdrawals. Pt endorses NKA, full code and regular diet. PMH of Acid Reflux and PPH of anxiety, depression, ADHD, Bipolar and Insomnia. Pt currently on an Ativan taper, with last CIWA 8, per NOC report. Pt had PRN Clonidine(anxiety), Melatonin(insomnia) and Benadryl(insomnia) administered on NOC, per report. Shield Runner encounters pt in pts room with pt resting with eyes closed. Even and unlabored respirations noted. Bed in low position with wheels locked and side rails up x2. Will continue to monitor, support and encourage according to plan of care.
[2018-09-22 08:30] VITALS: BP 107/58
--- NOTE | 2018-09-22 08:30 | NUR ---
CIWA 7 Pt with tremors, diaphoresis, anxiety and restlessness. Will continue to monitor, support and encourage according to plan of care.
[2018-09-22] MEDS: FOLIC ACID 1 MG TABLET PO SCH (09:16)
[2018-09-22] MEDS: THIAMINE HCL 100 MG TABLET PO SCH (09:16)
[2018-09-22] MEDS: MULTIVITAMINS,THERAPEUTIC TABLET PO SCH (09:16)
[2018-09-22] MEDS: LORAZEPAM 1 MG TABLET PO SCH ×3 (09:16→21:28)
[2018-09-22] MEDS: FAMOTIDINE 20 MG TABLET PO SCH (09:16)
[2018-09-22 12:43] VITALS: BP 122/66
--- NOTE | 2018-09-22 12:46 | NUR ---
CIWA 9 Pt with diaphoresis, tremors, anxiety and restlessness. Pt complains of nausea and chills. Will continue to monitor, support and encourage according to plan of care.
--- NOTE | 2018-09-22 12:50 | NUR ---
Therapist prompted client to attend group therapy sessions.
[2018-09-22] MEDS: CLONIDINE HCL 0.1 MG TABLET PO PRN (14:54)
--- NOTE | 2018-09-22 14:54 | NUR ---
PRN Clonidine Pt complains of anxiety and states the Clonidine is more effective for acute anxiety and requests medication by name. Shake Packer administered medication per order with pt tolerating well. Will continue to monitor, support and encourage according to plan of care.
--- NOTE | 2018-09-22 15:54 | NUR ---
PRN Re-Assessment Pt endorses aram, stating, " I am doing better." Will continue to monitor, support and encourage according to plan of care.
[2018-09-22 16:30] VITALS: BP 111/58
--- NOTE | 2018-09-22 16:30 | NUR ---
CIWA 9 Pt is anxious, restless, diaphoretic and tremulous, with complaints of nausea. Will continue to monitor, support and encourage according to plan of care.
[2018-09-22] MEDS ORDERED: LORAZEPAM 2 MG/1 ML VIAL IM PRN (18:15)
--- NOTE | 2018-09-22 19:02 | NUR ---
End of Shift Oral And Maxillofacial Surgery Resident provided report on 27 year old male admitted to [facility] on 09/19/18 for medical management of ETOH withdrawals. Pt endorses NKA, full code and regular diet. PMH of Acid Reflux and PPH of anxiety, depression, ADHD, Bipolar and Insomnia. Pt currently on an Ativan taper, with last CIWA 9, recorded at 1630. Pt administered PRN Clonidine(anxiety) on this shift. Pt is A/O x4 and able to make needs known. Clear thought process with clear speech pattern. Pt with a flat affect and depressed mood. Pt is anxious and restless. Pt with diaphoresis and tremors. Bed in low position with wheels locked and side rails up x2.
--- NOTE | 2018-09-22 19:14 | NUR ---
Start of shift note Received report from day shift nurse. Pt is a 27 yo male, A+Ox4, presenting to [facility] for medically supervised ETOH withdrawal. Pt was also using Methamphetamines and Marijuana. Pt noted with anxiety, agitation, and restlessness. Pt has HX of anxiety, depression, ADHD, bipolar disorder, GERD, and insomnia which will be monitored during shift. Pt is on 5 day Ativan taper, tolerated well. Respirations even and unlabored. Will continue to monitor.
[2018-09-22 20:12] VITALS: BP 136/59
--- NOTE | 2018-09-22 20:12 | NUR ---
CIWA Assessment CIWA: 9. Pt noted with fine tremors, sweat on brow, anxiety, and agitation. Respirations even and unlabored. Will continue to monitor.
[2018-09-22] MEDS: MELATONIN 3 MG TABLET PO PRN (23:36)
[2018-09-22] MEDS: diphenhydrAMINE 50 MG CAPSULE PO PRN (23:36)
--- NOTE | 2018-09-22 23:36 | NUR ---
PRN Benadryl and Melatonin Pt c/o inability to sleep and requested for PRN Benadryl and Melatonin. Medications given and tolerated well. Will reassess within 1 HR. Will continue to monitor.
--- NOTE | 2018-09-23 00:35 | NUR ---
PRN Benadryl and Melatonin Reassessment Medications effective. Pt is resting well in bed. No s/s of ASE noted at this time. Respirations even and unlabored. Will continue to monitor.
--- NOTE | 2018-09-23 00:57 | NUR ---
V/S refused and CIWA Assessment deferred for sleep. Respirations even and unlabored. Will continue to monitor.
--- NOTE | 2018-09-23 04:26 | NUR ---
V/S refused and CIWA Assessment deferred for sleep. Respirations even and unlabored. Will continue to monitor.
--- NOTE | 2018-09-23 07:00 | NUR ---
End of shift note Pt was continuously noted with restlessness, agitation, and anxiety. Pt remained in room for majority of shift except to go smoke on smoking patio, to get food from kitchen, and to interact with other patients in recreational room. Pt remained compliant and cooperative with all aspects of treatment. Pt was given PRN Benadryl and Melatonin @2336. Pt remains on 5 day Ativan taper, tolerated well. Pt slept for a total of 5 HRS. Last CIWA: 9 @2011. Respirations even and unlabored. Will endorse to day shift nurse.
--- NOTE | 2018-09-23 07:45 | NUR ---
START OF SHIFT Pt is a 27 yr old male, admitted on 09/19/18 for ETOH withdrawal and is on 5 day Ativan taper as ordered. Received report from assistant shift supervisor nurse. Pt was given Benadryl PRN and Melatonin PRN for sleep. Medication was effective and pt slept for 5 hrs and remains in bed sleeping. Respirations even and unlabored. Skin is intact, warm and moist to touch. Last CIWA score was 9 at 2000. dry to touch. Safety precautions observed. Call light is within reach. will continue to monitor.
[2018-09-23 08:00] VITALS: BP 88/40
--- NOTE | 2018-09-23 08:45 | NUR ---
CIWA ASSESSMENT Pt is c/o anxiety, agitation, sweats chills, headache, and restlessness. CIWA score is 8. Pt was encouraged increase fluid intake. Will continue to monitor.
[2018-09-23] MEDS: LORAZEPAM 1 MG TABLET PO SCH ×2 (09:18→21:51)
[2018-09-23] MEDS: FAMOTIDINE 20 MG TABLET PO SCH (09:19)
[2018-09-23] MEDS: FOLIC ACID 1 MG TABLET PO SCH (09:19)
[2018-09-23] MEDS: MULTIVITAMINS,THERAPEUTIC TABLET PO SCH (09:19)
[2018-09-23] MEDS: THIAMINE HCL 100 MG TABLET PO SCH (09:19)
[2018-09-23 12:00] VITALS: BP 128/69
--- NOTE | 2018-09-23 12:00 | NUR ---
CIWA ASSESSMENT Pt is c/o anxiety, agitation, sweats and chills,CIWA score is 7. Pt was encouraged increase fluid intake. Will continue to monitor.
[2018-09-23 16:00] VITALS: BP 146/79
--- NOTE | 2018-09-23 19:01 | NUR ---
END OF SHIFT Pt is a 27 yr old male, AA&Ox4. Pt was admitted on 09/19/18 for ETOH withdrawal and is on 5 day Ativan taper as ordered. Pt has been cooperative with medication regimen and plan of care. Pt was c/o anxiety, agitation, restlessness, sweats and chills. Skin is intact, warm and moist to touch. No PRNs were given during the day. Last CIWA score was 7 at 1600. Pt was encouraged increase fluid intake for hydration. Safety precautions observed. Endorsed to shift supervisor melting nurse to continue with care.
--- NOTE | 2018-09-23 19:12 | NUR ---
Start of shift note Received report from day shift nurse. Pt is a 27 yo male, A+Ox4, presenting to [facility] for medically supervised ETOH withdrawal. Pt was also using methamphetamines and marijuana. Pt noted with restlessness, agitation, and anxiety. Pt has Hx of anxiety, depression, ADHD, Bipolar disorder, GERD, and insomnia which will be monitored during shift. Pt is on 5 day Ativan taper, tolerated well. Respirations even and unlabored. Will continue to monitor.
[2018-09-23 20:11] VITALS: BP 127/72
--- NOTE | 2018-09-23 20:11 | NUR ---
CIWA Assessment CIWA: 11. Pt noted with fine tremors, agitation, sweat on brow, and anxiety. Respirations even and unlabored. Will continue to monitor.
[2018-09-23] MEDS: diphenhydrAMINE 50 MG CAPSULE PO PRN (22:55)
[2018-09-23] MEDS: MELATONIN 3 MG TABLET PO PRN (22:55)
--- NOTE | 2018-09-24 00:20 | NUR ---
V/S refused and CIWA Assessment deferred for sleep. Respirations even and unlabored. Will continue to monitor.
--- NOTE | 2018-09-24 04:40 | NUR ---
V/S refused and CIWA Assessment deferred for sleep. Respirations even and unlabored. Will continue to monitor.
--- NOTE | 2018-09-24 07:00 | NUR ---
End of shift note Pt was continuously noted with restlessness, anxiety, and agitation. Pt remained in room for majority of shift except to get food from kitchen, to get food from kitchen, and to interact with other patients in recreational room. Pt remains cooperative and compliant with all aspects of treatment. Pt was given PRN Benadryl and Melatonin @2255. Pt remains on 5 day Ativan taper, tolerated well. Pt slept for a total of 6 HRS. Last CIWA: 11 @2011. Respirations even and unlabored. Will endorse to day shift nurse.
--- NOTE | 2018-09-24 07:30 | NUR ---
BEGINNING OF SHIFT Patient endorsement report received from manager night nurse, all pertinent information was discussed. Patient received in bed with eyes closed, and respirations even and unlabored. Patient with admitting Dx: etoh withdrawal and substance use of methamphetamine. Patient continues with ongoing 5 day Ativan taper as ordered, scheduled to begin day 5 of taper. Per manager night patient received PRN: Benadryl and Melatonin. Slept for 6 hours. Will educate patient regarding plan of care for the day and medication regimen. Safety measures are in place. call light kept with in reach, will continue to monitor closely.
[2018-09-24 08:16] VITALS: BP 105/88
[2018-09-24] MEDS: MULTIVITAMINS,THERAPEUTIC TABLET PO SCH (08:22)
[2018-09-24] MEDS: FOLIC ACID 1 MG TABLET PO SCH (08:22)
[2018-09-24] MEDS: THIAMINE HCL 100 MG TABLET PO SCH (08:22)
[2018-09-24] MEDS: FAMOTIDINE 20 MG TABLET PO SCH (08:23)
[2018-09-24] MEDS ORDERED: LORAZEPAM 1 MG TABLET PO SCH (09:00)
--- NOTE | 2018-09-24 09:00 | NUR ---
CIWA ASSESSMENT During shift patient noted exhibiting the following s/sx of withdrawal: tremors that can be felt but not seen, diaphoresis, anxiety and agitation, patient with last CIWA score of: 10
--- NOTE | 2018-09-24 13:00 | NUR ---
CIWA ASSESSMENT continues to exhibit the following s/sx of withdrawal: tremors that can be felt but not seen, barely diaphoretic, anxiety and agitation, patient with last CIWA score of: 8.
[2018-09-24 13:58] VITALS: BP 118/89
[2018-09-24 16:58] VITALS: BP 106/76
--- NOTE | 2018-09-24 19:19 | NUR ---
END OF SHIFT Patient endorsed to night stocker nurse, all pertinent information was discussed. Patient is alert and oriented x4, received last dose of Ativan taper this morning, well tolerated, Patient completed 5 day Ativan taper as ordered, is scheduled to be discharged tomorrow morning, noted self motivated towards sobriety. During shift patient noted exhibiting the following s/sx of withdrawal: tremors that can be felt but not seen, diaphoresis, anxiety and agitation, patient with last CIWA score of: 8. Patient also encouraged utilization of non pharmacological interventions as needed. Safety measures in place. Encouraged to increase PO fluid intake as tolerated. Noted with anxious and depressed mood. Encouraged to attend group therapies/sessions to learn new coping skills to prevent relapse, denies SI/HI. Safety measures are in place. Call light with in reach.
--- NOTE | 2018-09-24 19:20 | NUR ---
Start of shift note Received report from day shift nurse. Pt is a 27 yo male, A+Ox4, presenting to [facility] for medically supervised ETOH withdrawal. Pt was also using Methamphetamines. Pt noted with restlessness, anxiety, and agitation. Pt has HX of anxiety, depression, ADHD, bipolar disorder, GERD, and insomnia which will be monitored during shift. Pt has completed 5 day Ativan taper, tolerated well. Respirations even and unlabored. Will continue to monitor.
[2018-09-24 20:12] VITALS: BP 134/66
--- NOTE | 2018-09-24 20:12 | NUR ---
CIWA Assessment CIWA: 6. Pt noted with fine tremors, anxiety, sweat on brow, and agitation. Respirations even and unlabored. Will continue to monitor.
[2018-09-24] MEDS: diphenhydrAMINE 50 MG CAPSULE PO PRN (23:26)
[2018-09-24] MEDS: MELATONIN 3 MG TABLET PO PRN (23:26)
--- NOTE | 2018-09-24 23:36 | NUR ---
PRN Benadryl, Melatonin, and Milk of Magnesia Pt c/o inability to sleep and constipation and requested for PRN Benadryl, Melatonin, and Milk of Magnesia. Medications given and tolerated well. Will reassess within 1 HR. Will continue to monitor.
--- NOTE | 2018-09-25 00:30 | NUR ---
PRN Benadryl, Melatonin, and Milk of Magnesia Reassessment Medications effective. Pt is resting well in bed. No s/s of ASE noted at this time. Respirations even and unlabored. Will continue to monitor.
--- NOTE | 2018-09-25 00:59 | NUR ---
V/S refused and CIWA Assessment deferred for sleep. Respirations even and unlabored. Will continue to monitor.
--- NOTE | 2018-09-25 04:34 | NUR ---
V/S refused and CIWA Assessment deferred for sleep. Respirations even and unlabored. Will continue to monitor.
--- NOTE | 2018-09-25 07:00 | NUR ---
End of shift note Pt was continuously noted with restlessness, anxiety, and agitation. Pt remained in room for majority of shift except to get food from kitchen, to go smoke on smoking patio, and to interact with other patients in recreational room. Pt was given PRN Benadryl, Melatonin, and Milk of Magnesia @2326. Pt has completed 5 day Ativan taper, tolerated well, and is due for discharge today. Pt slept for a total of 7 HRS. Last CIWA: 6 @2011. Respirations even and unlabored. Will endorse to day shift nurse.
--- NOTE | 2018-09-25 07:41 | NUR ---
BEGINNING OF SHIFT Patient awake, alert and oriented x4, received awake, alert and oriented x4, patient is scheduled to be discharged this morning, noted self motivated towards sobriety. Patient endorsement report received from hotel night auditor nurse, all pertinent information was discussed. Per hotel night auditor patient received PRN: Benadryl and Melatonin, and milk of magnesium. Slept for 7 hours. last CIWA score of: 6. Will educate patient regarding plan of care for the day and medication regimen. Safety measures are in place. call light kept with in reach, will continue to monitor closely.
[2018-09-25 08:09] VITALS: BP 122/63
[2018-09-25] MEDS: FOLIC ACID 1 MG TABLET PO SCH (08:45)
[2018-09-25] MEDS: MULTIVITAMINS,THERAPEUTIC TABLET PO SCH (08:45)
[2018-09-25] MEDS: FAMOTIDINE 20 MG TABLET PO SCH (08:45)
[2018-09-25] MEDS: THIAMINE HCL 100 MG TABLET PO SCH (08:45)
--- NOTE | 2018-09-25 09:50 | NUR ---
DISCHARGE Patient discharged off the unit at 0950, prior to discharge patient was provided with teaching and education regarding all discharge instructions with good verbal understanding. Patients vital signs WNL. Last CIWA score of: 5. Noted self motivated towards sobriety. Scheduled morning medications administered as ordered. Patient did not bring any home medications. Discharge instructions placed in patients personal duffel bag. Patient off the unit at 0950 in stable condition and in no apparent acute distress.
== END 2018-09-25 09:50 | disposition other institution (70) | DRG 895 ==
LOC: SRC 21:34
PROVIDERS: ADMIT Internal Medicine; ATTEND Family Medicine Addiction Medicine
PROC: HZ2ZZZZ Detoxification Services for Substance Abuse Treatment (ICD-10-PCS; principal; 2018-09-19)
PROC: HZ41ZZZ Group Counseling for Substance Abuse Treatment, Behavioral (ICD-10-PCS; 2018-09-20)
PROC: HZ31ZZZ Individual Counseling for Substance Abuse Treatment, Behavioral (ICD-10-PCS; 2018-09-22)
DX: F10.230 Alcohol dependence with withdrawal, uncomplicated (principal); F15.23 Other stimulant dependence with withdrawal; Y90.3 Blood alcohol level of 60-79 mg/100 ml; F31.9 Bipolar disorder, unspecified; F17.210 Nicotine dependence, cigarettes, uncomplicated; E87.6 Hypokalemia; G47.00 Insomnia, unspecified; Z83.3 Family history of diabetes mellitus; Z82.49 Family history of ischemic heart disease and other diseases of the circulatory system; F41.1 Generalized anxiety disorder; F43.10 Post-traumatic stress disorder, unspecified; F12.90 Cannabis use, unspecified, uncomplicated; F90.9 Attention-deficit hyperactivity disorder, unspecified type
CPT/HCPCS: 36415; 70030-TC; 80307; 80349; 83690; 83735; 84443; 85025; 86592; 86705; 86803; 87340; 87806; A4663; G0480; Q0163

== ENCOUNTER 2022-08-06 16:21 | Emergency (ER) | payer OTHER ==
[~2022-08-06] VITALS: Ht 182.9 cm; Wt 77.1 kg
--- NOTE | 2022-08-06 17:35 | NUR ---
patient is coming in for psych eval.
[2022-08-06 17:36] LABS: HEMATOCRIT 38.9 % (36.7-47.1); MEAN CORPUSCULAR HEMOGLOBIN 31.6 uug (23.8-33.4); MEAN CORPUSCULAR VOLUME 93.8 fL (73.0-96.2); PLATELET COUNT (AUTO) 396 K/uL (152-348)
[2022-08-06 17:52] LABS: ALANINE AMINOTRANSFERASE 35 U/L (16-63); ALKALINE PHOSPHATASE 88 U/L (50-136); ASPARTATE AMINOTRANSFERASE 17 U/L (15-37); BILIRUBIN,DIRECT 0.1 mg/dL (0.0-0.2); BILIRUBIN,TOTAL 0.4 mg/dL (0.2-1.0); CARBON DIOXIDE 29 mmol/L (21-32); CHLORIDE 101 mmol/L (98-107); CREATININE 1.1 mg/dL (0.6-1.3); GLUCOSE 114 mg/dL (74-106); POTASSIUM 3.9 mmol/L (3.5-5.1); TOTAL PROTEIN, SERUM 7.1 g/dL (6.4-8.2); UREA NITROGEN, BLOOD 15 mg/dL (7-18)
[2022-08-06 17:53] LABS: ACETAMINOPHEN < 10.0 ug/mL (10-30)
[2022-08-06 17:54] LABS: ETHANOL < 3 MG/DL (0-0)
--- NOTE | 2022-08-06 18:40 | NUR ---
waiting for [facility] to call back for bed availiability for voluntary admission
[2022-08-06 18:56] LABS: *BILIRUBIN,URIN NEGATIVE (NEGATIVE); *BLOOD, URINE 2+ (NEGATIVE); *CLARITY,URINE CLEAR (CLEAR); *COLOR,URINE YELLOW (YELLOW); *KETONES,URINE NEGATIVE (NEGATIVE); *UROBILINOGEN,URINE 0.2 E.U./dl (NORMAL); LEUKOCYTE ESTERASE ,URINE NEGATIVE (NEGATIVE); NITRITE, URINE NEGATIVE (NEGATIVE); PH,URINE 5.5 (5.0-8.0); UGLUCOSE NEGATIVE (NEGATIVE)
[2022-08-06 19:10] LABS: *AMPHETAMINE, URINE NEGATIVE (NEGATIVE); *CANNABINOID, URINE POSITIVE (NEGATIVE); *COCCAINE, URINE NEGATIVE (NEGATIVE); *OPIATE, URINE NEGATIVE (NEGATIVE); *PHENCYCLIDINE SCREEN,URINE NEGATIVE (NEGATIVE)
[2022-08-06 19:11] LABS: RBC,URINE 20-50 /HPF (0-3); WBC,URINE 0-3 /HPF (0-3)
[2022-08-06 19:12] LABS: BACTERIA,URINE FEW /HPF (NONE SEEN)
[2022-08-06 19:13] LABS: SQUAMOUS EPITHELIAL CELL,UR NONE SEEN /HPF (NONE SEEN)
--- NOTE | 2022-08-06 19:34 | NUR ---
pt a/o denies pain, says he wants to go to [facility] on a voluntary basis he denies wants to harm self at this time.
--- NOTE | 2022-08-06 19:52 | NUR ---
spoke with may at [facility] they need clinical information sent and covid test to be faxed to [phone]
--- NOTE | 2022-08-06 20:40 | NUR ---
faxed requested documents to [facility].
--- NOTE | 2022-08-06 21:20 | NUR ---
may at [facility] requsted I fax the document to her again. I faxed it and received a confirmation page that says it when through to them ok.
--- NOTE | 2022-08-06 21:52 | NUR ---
called to [facility] spoke with Art he states he received all documents and will call us back.
--- NOTE | 2022-08-06 22:55 | NUR ---
received a call from art at [facility] they state they cant take the pt because they dont take his insurance. He provied me with the number for [facility] intake dept at [phone] to call them.
--- NOTE | 2022-08-06 22:59 | NUR ---
[facility] states they do not have a bed available and that they will not take faxed information on the pt.
--- NOTE | 2022-08-06 23:09 | NUR ---
called and spoke with rn social services americo informed her [facility] will not take the pt because of his insurance. [facility] will not take him becaue of no beds available.
--- NOTE | 2022-08-06 23:20 | NUR ---
I called [phone] [facility] and they state they are full unable to place the pt. I called [phone] [facility] they state they cannot accept [facility] pt's at this time. when asked pt eugenejimmy to be placed on a psych hold.
--- NOTE | 2022-08-07 06:08 | NUR ---
call placed to Letha she will come to see him and place him on a 5150 hold.
[2022-08-07] MEDS ORDERED: BUPR100T5 PO (07:58)
[2022-08-07] MEDS ORDERED: BUPR300T52 PO (07:58)
[2022-08-07] MEDS ORDERED: TRAZ-257 PO (07:58)
[2022-08-07] MEDS: buPROPion 100 MG TABLET PO ONE (12:00)
--- NOTE | 2022-08-07 15:41 | NUR ---
Social work consult was requested for a patient in the emergency room for homeless, mental health and substance abuse resources. Patient is 31-year-old white male. Patient was placed on a 5150 hold by LISETH Vallecillo. Patient appears alert and oriented X4. Patient appears lethargic. Patient presents with depressed mood and congruent affect. Patient states he does not have a primary contact. Patient states he has been homeless for a couple of years. MANPREET provided the patient resources and gave him the information for [facility] [address] [place] [address] ([phone]) and [facility] [address] [facility] [address] ([phone]). MANPREET gave resources for [facility] [address] [place] [id number]. Patient was appreciative of the resources. Resources were placed in the chart. Homeless waiver was signed and given to the patient and a copy was placed in the chart. Patient states that he is unemployed. Patient states that he has a history of substance with alcohol and marijuana. The toxicology report is positive for cannabinoids. Patient states the last time he drank alcohol and smoke marijuana was a couple of weeks ago. MANPREET provided the patient resources and referrals for substance use from [facility] [address] [facility] [address] ([phone]), [facility] [address] [facility] [address] ([phone]), and [facility] [address] [place] [phone] ([phone]). Patient appeared appreciative of resources. Patient appears ambivalent about treatment. Resources were placed in the chart. Patient states he has a history of depression and PTSD. MANPREET provided the patient with the mental health walk in resource at [facility] [address] [place] [address] ([phone]). Patient denies visual or auditory hallucinations and delusions. Patient states he is having suicidal ideation that he states, comes and goes. Patient states that he has suicidal ideation because of living of his current situation of being homeless. SW provided emotional support and validation. Patient denies homicidal ideation. P[facility]co GARMENT FORM ASSEMBLER consulted and prescribed Wellbutrin. MANPREET called and faxed information to [facility] [address], [place] [address] ([phone]) and patient was accepted. MANPREET called Truman from [facility] ([phone]) and he stated the patient would be going to [address] [place] [address] and the accepting nurse is Will. 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
--- NOTE | 2022-08-07 17:08 | NUR ---
PT REFUSING TO GO TO [facility] WANTS TO GO HOME INSTEAD. AUGUSTIN CALLED AWAITING CALLBACK. DR RANDALL AT BEDSIDE TO TALK TO PATIENT.
[2022-08-07] MEDS ORDERED: LORAZEPAM 1 MG TABLET ONE (17:12)
[2022-08-07] MEDS ORDERED: buPROPion 100 MG TABLET PO SCH (17:15)
[2022-08-07] MEDS: LORAZEPAM 0.5 MG TABLET PO ONE (17:16)
[2022-08-07] MEDS: buPROPion 100 MG TABLET PO SCH (17:24)
--- NOTE | 2022-08-07 19:27 | NUR ---
Gave SBAR report to [facility] ambulance unit [id number].
== END 2022-08-07 19:43 ==
LOC: ER 16:29
DX: R45.851 Suicidal ideations (principal); F32.9 Major depressive disorder, single episode, unspecified; J45.909 Unspecified asthma, uncomplicated; K21.9 Gastro-esophageal reflux disease without esophagitis; F43.10 Post-traumatic stress disorder, unspecified; F41.9 Anxiety disorder, unspecified; Z91.51 Personal history of suicidal behavior; F12.90 Cannabis use, unspecified, uncomplicated; F17.210 Nicotine dependence, cigarettes, uncomplicated; Z59.00 Homelessness unspecified; Z20.822 Contact with and (suspected) exposure to COVID-19
CPT/HCPCS: 36415; 85025; A4663; G0480